=== PATIENT | male | born 1955 | race Caucasian/White ===

== ENCOUNTER 2017-04-29 06:00 | Inpatient (IN) | payer MEDICAID, OTHER ==
[~2017-04-29] VITALS: Ht 177.8 cm; Wt 84.3 kg
[2017-04-29 06:32] LABS: Basophils # (auto) 0.1 uL; Basophils % (auto) 0.7 % (0.0-2.0); CONDITION Y; DEFINITIVE SEE PRINTOUT; Eosinophils # (auto) 0 uL; Eosinophils % (auto) 0.2 % (0.0-7.0); Hematocrit 54.4 % (41.0-53.0); Hemoglobin 18.1 g/dL (13.5-17.5); Lymphocytes # (auto) 3.3 uL; Lymphocytes % (auto) 16.9 % (10.0-50.0); Mean Corpuscular Hemoglobin 26.9 pg (28.0-32.0); Mean Corpuscular Hgb Conc. 33.2 g/dL (32.0-36.0); Mean Corpuscular Volume 81.1 fL (80.0-100.0); Mean Platelet Volume 9.1 fL (7.4-10.4); Monocytes # (auto) 0.9 uL; Monocytes % (auto) 4.8 % (0.0-12.0); Neutrophils % (auto) 77.4 % (37.0-80.0); Platelet Count (auto) 371 10^3/uL (140-450); Red Cell Distribution Width 16.4 % (11.6-16.0); White Blood Cell 19.4 10^3/uL (4.4-10.8)
[2017-04-29] MEDS ORDERED: cloNIDine HCL 0.1 MG TAB ONE (06:47)
[2017-04-29] MEDS ORDERED: SODIUM CHLORIDE 0.9% 1,000 ML IV ONE (07:00)
[2017-04-29] MEDS ORDERED: cloNIDine HCL 0.1 MG TAB PO ONE (07:00)
[2017-04-29] MEDS ORDERED: MORPHINE SULFATE 4 MG/ML SYRG IV ONE (07:15)
[2017-04-29] MEDS ORDERED: ONDANSETRON HCL 4 MG/2 ML VIAL IV ONE (07:15)
[2017-04-29 07:29] LABS: Anion Gap 12 (5-15); Aspartate Aminotransferase 35 U/L (15-37); BUN/Creatinine Ratio 17.5; Blood Urea Nitrogen 32 mg/dL (7-18); Calcium 9.5 mg/dL (8.5-10.1); Carbon Dioxide 23 mmol/L (21-32); Chloride 97 mmol/L (98-107); GFR African American 48 mL/min; GFR Non-African American 40 mL/min; Glucose 169 mg/dL (74-106); Magnesium 2.5 mg/dL (1.6-2.6); Potassium 4.3 mmol/L (3.5-5.1); Sodium 132 mmol/L (136-145)
[2017-04-29] MEDS ORDERED: cefTRIAXone 1GM/50ML D5W 50 ML IV ONE (07:30)
[2017-04-29] MEDS ORDERED: metroNIDAZOLE 500MG/100ML 100 ML IV ONE (07:30)
[2017-04-29 07:31] LABS: Alkaline Phosphatase 112 U/L (45-117); Bilirubin, Total 1.3 mg/dL (0.2-1.0); Total Protein 9.2 g/dL (6.4-8.2)
[2017-04-29] MEDS ORDERED: DOCUSATE SOD 100 MG CAP PO PRN (09:15)
[2017-04-29] MEDS ORDERED: DEXTROSE (50%) 50ML SYRG IV PRN (09:15)
[2017-04-29] MEDS ORDERED: ONDANSETRON HCL 4 MG/2 ML VIAL IV PRN (09:15)
[2017-04-29] MEDS ORDERED: ACETAMINOPHEN 325 MG TAB PO PRN (09:15)
[2017-04-29] MEDS ORDERED: TEMAZEPAM 15 MG CAP PO PRN (09:15)
[2017-04-29] MEDS: SODIUM CHLORIDE 0.9% 1,000 ML IV SCH ×2 (09:22→17:17)
[2017-04-29] MEDS: FAMOTIDINE 20 MG TAB PO SCH ×2 (09:25→21:31)
[2017-04-29] MEDS: ASPirin-EC 81 mg tab PO SCH (09:28)
[2017-04-29] MEDS: LISINOPRIL 20 MG TAB PO SCH (09:28)
[2017-04-29] MEDS ORDERED: cloNIDine HCL 0.1 MG TAB PO PRN (09:30)
[2017-04-29] MEDS ORDERED: PATIENTS OWN MEDICATION IN SCH ×2 (10:00)
[2017-04-29] MEDS: ALBUTEROL SULF 2.5 MG/0.5ML(0.5%) NEB SOLN NEB SCH ×2 (11:00→19:31)
[2017-04-29] MEDS: BUDESONIDE (INHALATION) 0.5 MG/2 ML NEB NEB SCH ×2 (11:00→19:31)
[2017-04-29] MEDS: ACCU-CHEK COMFORT CURVE STRIP VI SCH ×3 (11:30→21:31)
[2017-04-29] MEDS: InsuLIN REG 1unit/0.01ml Soln (100units/ml) SC SCH ×3 (11:30→21:31)
[2017-04-29] MEDS: metroNIDAZOLE 500MG/100ML 100 ML IV SCH ×2 (14:00→21:31)
[2017-04-29 14:40] VITALS: BP 104/50
[2017-04-29 15:19] LABS: Lactic Acid w/Reflex 2.2 mmol/L (0.4-2.0)
[2017-04-29 15:41] LABS: REFLEX LACTIC ACID YES OR NO YES
[2017-04-29 17:18] VITALS: BP 92/52
[2017-04-29] MEDS: MORPHINE SULF INJ 2 MG/ML SYRINGE 1ML IV PRN (18:54)
[2017-04-29 21:53] VITALS: BP 86/58
[2017-04-29] MEDS: HYDROcodone-ACET 5/325MG TAB PO PRN (23:57)
[2017-04-30] MEDS: SODIUM CHLORIDE 0.9% 1,000 ML IV SCH ×3 (03:00→18:40)
[2017-04-30 04:45] VITALS: BP 86/55
[2017-04-30] MEDS: BUDESONIDE (INHALATION) 0.5 MG/2 ML NEB NEB SCH (06:00)
[2017-04-30] MEDS: ALBUTEROL SULF 2.5 MG/0.5ML(0.5%) NEB SOLN NEB SCH ×3 (06:00→18:08)
[2017-04-30] MEDS: ACCU-CHEK COMFORT CURVE STRIP VI SCH ×4 (06:10→20:30)
[2017-04-30] MEDS: InsuLIN REG 1unit/0.01ml Soln (100units/ml) SC SCH ×4 (06:10→20:30)
[2017-04-30] MEDS: metroNIDAZOLE 500MG/100ML 100 ML IV SCH (06:10)
[2017-04-30 06:25] LABS: Basophils # (auto) 0 uL; Basophils % (auto) 0.4 % (0.0-2.0); CONDITION Y; DEFINITIVE SEE PRINTOUT; Eosinophils # (auto) 0.1 uL; Eosinophils % (auto) 0.6 % (0.0-7.0); Hematocrit 41.1 % (41.0-53.0); Hemoglobin 13.5 g/dL (13.5-17.5); Lymphocytes # (auto) 3.9 uL; Lymphocytes % (auto) 32.7 % (10.0-50.0); Mean Corpuscular Hgb Conc. 32.7 g/dL (32.0-36.0); Mean Corpuscular Volume 82.4 fL (80.0-100.0); Mean Platelet Volume 9.3 fL (7.4-10.4); Monocytes % (auto) 8.2 % (0.0-12.0); Neutrophils # (auto) 6.9 uL; Neutrophils % (auto) 58.1 % (37.0-80.0); Platelet Count (auto) 303 10^3/uL (140-450); Red Cell Distribution Width 16.6 % (11.6-16.0); White Blood Cell 11.9 10^3/uL (4.4-10.8)
[2017-04-30 06:37] LABS: Albumin 2.9 g/dL (3.4-5.0); Calcium 7.9 mg/dL (8.5-10.1); Potassium 4.1 mmol/L (3.5-5.1)
[2017-04-30 06:40] LABS: Bilirubin, Total 0.6 mg/dL (0.2-1.0); Total Protein 5.8 g/dL (6.4-8.2)
[2017-04-30 09:00] VITALS: BP 90/60
[2017-04-30] MEDS ORDERED: cefTRIAXone 1GM/50ML D5W 50 ML IV SCH (09:00)
[2017-04-30] MEDS: HYDROcodone-ACET 5/325MG TAB PO PRN (09:18)
[2017-04-30] MEDS: LISINOPRIL 20 MG TAB PO SCH (10:00)
[2017-04-30] MEDS: ASPirin-EC 81 mg tab PO SCH (10:13)
[2017-04-30] MEDS: FAMOTIDINE 20 MG TAB PO SCH ×2 (10:13→20:30)
[2017-04-30] MEDS: MULTIPLE VITAMIN TAB PO SCH (10:14)
[2017-04-30] MEDS ORDERED: SODIUM CHLORIDE 0.9% 1,000 ML IV ONE (10:45)
[2017-04-30] MEDS ORDERED: LISI-646 PO (11:43)
[2017-04-30] MEDS ORDERED: ASPI81TA27 PO (11:44)
[2017-04-30] MEDS ORDERED: BUDE0.253 NEB (11:49)
[2017-04-30 13:00] VITALS: BP 111/77
[2017-04-30] MEDS: MORPHINE SULF INJ 2 MG/ML SYRINGE 1ML IV PRN ×2 (14:18→20:29)
[2017-04-30 17:00] VITALS: BP 101/67
[2017-04-30 22:00] VITALS: BP 108/68
[2017-05-01] MEDS: MORPHINE SULF INJ 2 MG/ML SYRINGE 1ML IV PRN (02:54)
[2017-05-01] MEDS: SODIUM CHLORIDE 0.9% 1,000 ML IV SCH (02:54)
[2017-05-01 04:47] VITALS: BP 136/84
[2017-05-01 05:53] LABS: Basophils # (auto) 0.1 uL; Basophils % (auto) 0.7 % (0.0-2.0); CONDITION Y; Eosinophils # (auto) 0 uL; Eosinophils % (auto) 0.3 % (0.0-7.0); Hematocrit 41.3 % (41.0-53.0); Hemoglobin 13.6 g/dL (13.5-17.5); Lymphocytes # (auto) 3.2 uL; Mean Corpuscular Hemoglobin 27.1 pg (28.0-32.0); Mean Platelet Volume 9.2 fL (7.4-10.4); Monocytes # (auto) 1.3 uL; Monocytes % (auto) 10.5 % (0.0-12.0); Neutrophils # (auto) 7.8 uL; Neutrophils % (auto) 62.5 % (37.0-80.0); Platelet Count (auto) 261 10^3/uL (140-450); Red Cell Distribution Width 16.4 % (11.6-16.0); White Blood Cell 12.4 10^3/uL (4.4-10.8)
[2017-05-01] MEDS: ALBUTEROL SULF 2.5 MG/0.5ML(0.5%) NEB SOLN NEB SCH ×3 (06:07→12:00)
[2017-05-01] MEDS: InsuLIN REG 1unit/0.01ml Soln (100units/ml) SC SCH (06:23)
[2017-05-01] MEDS: ACCU-CHEK COMFORT CURVE STRIP VI SCH (06:24)
[2017-05-01 06:30] LABS: BUN/Creatinine Ratio 8.6; Calcium 7.8 mg/dL (8.5-10.1); Magnesium 2.2 mg/dL (1.6-2.6); Potassium 3.6 mmol/L (3.5-5.1)
[2017-05-01 09:49] VITALS: BP 152/69
[2017-05-01] MEDS: MULTIPLE VITAMIN TAB PO SCH (10:15)
[2017-05-01] MEDS: FAMOTIDINE 20 MG TAB PO SCH (10:16)
[2017-05-01 13:00] VITALS: BP 152/69
[2017-05-01] MEDS ORDERED: OMEP20CA74 PO (13:46)
[2017-05-01 14:25] VITALS: BP 90/65
== END 2017-05-01 14:40 | disposition home or self-care (01) | DRG 468 ==
LOC: ER 06:05 → OVERFLOW 06:06 → EAST 11:53
PROVIDERS: ADMIT Internal Medicine; ATTEND Internal Medicine
DX: I12.9 Hypertensive chronic kidney disease with stage 1 through stage 4 chronic kidney disease, or unspecified chronic kidney disease (principal); N17.9 Acute kidney failure, unspecified; N18.3 Chronic kidney disease, stage 3 (moderate); J44.9 Chronic obstructive pulmonary disease, unspecified; D75.1 Secondary polycythemia; E86.0 Dehydration; K52.9 Noninfective gastroenteritis and colitis, unspecified; E87.1 Hypo-osmolality and hyponatremia; F17.210 Nicotine dependence, cigarettes, uncomplicated; Z86.59 Personal history of other mental and behavioral disorders
CPT/HCPCS: 36415; 71010; 74176; 80048; 80053; 82150; 82962; 83036; 83605; 83690; 83735; 84443; 84484; 85025; 87040; 93005; 94640; 94761; 96361; 96365; 96367; 96375; J0696; J2405; J3490

== ENCOUNTER 2017-06-03 01:54 | Emergency (ER) | payer MEDICAID ==
[~2017-06-03] VITALS: Ht 177.8 cm; Wt 86.2 kg
[~2017-06-03 01:54] MED LIST: ASPI81TA27 PO; BUDE0.253 NEB; LISI-646 PO; OMEP20CA74 PO; TIOTCAP INH
[2017-06-03 03:42] LABS: Urine Bilirubin Negative (Negative); Urine Blood Negative /uL (Negative); Urine Ca Oxalate Crystal MOD (None Seen); Urine Color Yellow (Yellow); Urine Glucose Normal (Normal); Urine Granular Cast MANY /lpf (0); Urine Hyaline Cast MANY /lpf (0 - 2); Urine Ketone Negative (Negative); Urine Mucus FEW (None Seen); Urine Nitrite Negative (Negative); Urine RBC 13 /hpf (0 - 3); Urine Squamous Epithelial Cell FEW /hpf (<5); Urine Urobilinogen Normal (Negative); Urine pH 5.5 (5.0-8.0)
[2017-06-03] MEDS ORDERED: ONDANSETRON ODT 4 MG TAB PO ONE (04:45)
[2017-06-03] MEDS ORDERED: MORPHINE SULFATE 4 MG/ML SYRG IV ONE (06:00)
[2017-06-03] MEDS ORDERED: IOHEXOL 300 MG/ML 100ML BOTTLE IJ ONE (06:43)
[2017-06-03 08:20] LABS: Basophils # (auto) 0.1 uL; Basophils % (auto) 0.4 % (0.0-2.0); CONDITION Y; DEFINITIVE SEE PRINTOUT; Eosinophils # (auto) 0 uL; Eosinophils % (auto) 0.1 % (0.0-7.0); Hematocrit 47.8 % (41.0-53.0); Hemoglobin 15.8 g/dL (13.5-17.5); Lymphocytes # (auto) 1.9 uL; Lymphocytes % (auto) 16.3 % (10.0-50.0); Mean Corpuscular Hemoglobin 26.1 pg (28.0-32.0); Mean Corpuscular Hgb Conc. 33.1 g/dL (32.0-36.0); Mean Corpuscular Volume 78.9 fL (80.0-100.0); Mean Platelet Volume 9.5 fL (7.4-10.4); Monocytes # (auto) 0.4 uL; Monocytes % (auto) 3.8 % (0.0-12.0); Neutrophils # (auto) 9.2 uL; Neutrophils % (auto) 79.4 % (37.0-80.0); Platelet Count (auto) 291 10^3/uL (140-450); Red Cell Distribution Width 17.5 % (11.6-16.0); White Blood Cell 11.5 10^3/uL (4.4-10.8)
[2017-06-03 08:33] LABS: Calcium 8.8 mg/dL (8.5-10.1); Chloride 105 mmol/L (98-107); Potassium 3.7 mmol/L (3.5-5.1); Sodium 139 mmol/L (136-145)
[2017-06-03 08:36] LABS: Albumin 4.6 g/dL (3.4-5.0); Anion Gap 10 (5-15); Aspartate Aminotransferase 17 U/L (15-37); BUN/Creatinine Ratio 15.1; Blood Urea Nitrogen 19 mg/dL (7-18); Carbon Dioxide 24 mmol/L (21-32); GFR African American 75 mL/min; GFR Non-African American 62 mL/min; Glucose 124 mg/dL (74-106); Magnesium 2.6 mg/dL (1.6-2.6)
[2017-06-03 08:42] LABS: Alkaline Phosphatase 102 U/L (45-117); Bilirubin, Total 0.6 mg/dL (0.2-1.0); Total Protein 7.8 g/dL (6.4-8.2)
[2017-06-03] MEDS ORDERED: LABETALOL HCL 5 MG/ML ML 20ML VIAL IV ONE (10:15)
[2017-06-03] MEDS ORDERED: METOCLOPRAMIDE HCL 5MG/ml INJ 2ml VIAL IV ONE (10:45)
[2017-06-03] MEDS ORDERED: cefTRIAXone 1GM/50ML D5W 50 ML IV ONE (10:45)
[2017-06-03] MEDS ORDERED: KETOROLAC TROMETH 30 MG/ML 1ML VIAL IV ONE (10:45)
[2017-06-03] MEDS ORDERED: hydrALAZINE HCL 20 MG/ML VL ONE (11:12)
[2017-06-03] MEDS ORDERED: hydrALAZINE HCL 20 MG/ML VL IV ONE (11:15)
[2017-06-03] MEDS ORDERED: SODIUM CHLORIDE 0.9% 250 ML IV ONE (12:30)
[2017-06-03] MEDS ORDERED: SODIUM CHLORIDE 0.9% 500 ML IV ONE (13:45)
[2017-06-03] MEDS ORDERED: SODIUM CHLORIDE 0.9% 1,000 ML IV ONE (14:30)
[2017-06-03 15:08] VITALS: BP 110/60
== END 2017-06-03 10:46 | disposition home or self-care (01) ==
LOC: ER 02:00
DX: N39.0 Urinary tract infection, site not specified (principal); I10 Essential (primary) hypertension; F12.10 Cannabis abuse, uncomplicated; M51.36 Other intervertebral disc degeneration, lumbar region; N40.0 Benign prostatic hyperplasia without lower urinary tract symptoms; F17.210 Nicotine dependence, cigarettes, uncomplicated; J44.9 Chronic obstructive pulmonary disease, unspecified; Z79.82 Long term (current) use of aspirin
CPT/HCPCS: 36415; 74177; 80053; 80307; 81001; 83605; 83690; 83735; 84484; 85025; 93005; 96361; 96365; 96375; 99285; J0360; J0696; J1885; J2270; J2765; J7030; J7040; J7050; Q0162; Q9967

== ENCOUNTER 2017-07-23 08:32 | Emergency (ER) | payer MEDICAID ==
[~2017-07-23] VITALS: Ht 177.8 cm; Wt 86.2 kg
[2017-07-23] MEDS ORDERED: cloNIDine HCL 0.1 MG TAB PO ONE (08:45)
[2017-07-23 09:23] LABS: Basophils # (auto) 0 uL; Basophils % (auto) 0.1 % (0.0-2.0); Eosinophils # (auto) 0 uL; Lymphocytes # (auto) 1.2 uL; Lymphocytes % (auto) 10.1 % (10.0-50.0); Mean Platelet Volume 8.4 fL (6.9-10.8); Monocytes # (auto) 0.3 uL; Nucleated Red Blood Cells % 0.1 %
[2017-07-23 09:25] LABS: Hematocrit 45.9 % (41.0-53.0); Hemoglobin 15.1 g/dL (13.5-17.5); Mean Corpuscular Hgb Conc. 32.8 g/dL (32.0-36.0); Mean Corpuscular Volume 79.3 fL (80.0-100.0); Monocytes % (auto) 2.5 % (0.0-12.0); Neutrophils # (auto) 10.5 uL; Neutrophils % (auto) 87.3 % (37.0-80.0); Platelet Count (auto) 292 10^3/uL (140-450); Red Cell Distribution Width 19.2 % (11.8-14.3)
[2017-07-23] MEDS ORDERED: SODIUM CHLORIDE 0.9% 1,000 ML IV ONE ×2 (09:32)
[2017-07-23] MEDS ORDERED: ONDANSETRON HCL 4 MG/2 ML VIAL IV ONE (09:45)
[2017-07-23] MEDS ORDERED: KETOROLAC TROMETH 30 MG/ML 1ML VIAL IV ONE ×2 (09:45→11:15)
[2017-07-23 10:16] LABS: Albumin 3.8 g/dL (3.4-5.0); Alkaline Phosphatase 105 U/L (45-117); Amylase 20 U/L (25-115); Anion Gap 10 (5-15); Aspartate Aminotransferase 12 U/L (15-37); BUN/Creatinine Ratio 12.8; Bilirubin, Total 0.6 mg/dL (0.2-1.0); Blood Urea Nitrogen 10 mg/dL (7-18); Calcium 8.9 mg/dL (8.5-10.1); Carbon Dioxide 22 mmol/L (21-32); Chloride 102 mmol/L (98-107); GFR African American 130 mL/min; GFR Non-African American 107 mL/min; Glucose 179 mg/dL (74-106); Potassium 3.6 mmol/L (3.5-5.1); Sodium 134 mmol/L (136-145); Total Protein 8.1 g/dL (6.4-8.2)
[2017-07-23 10:36] LABS: Urine RBC None Seen /hpf (0 - 3)
[2017-07-23] MEDS ORDERED: LABETALOL HCL 5 MG/ML 4ML SYRINGE IV ONE (10:45)
[2017-07-23 10:49] LABS: Urine Bilirubin Negative (Negative); Urine Blood Negative /uL (Negative); Urine Color Yellow (Yellow); Urine Glucose 3+ mg/dL (Normal); Urine Ketone 2+ (Negative); Urine Nitrite Negative (Negative); Urine Urobilinogen Normal (Negative)
[2017-07-23] MEDS ORDERED: LABETALOL HCL 5 MG/ML ML 20ML VIAL IV ONE (10:50)
[2017-07-23 13:27] VITALS: BP 163/106
[2017-07-25 11:07] LABS: PSA Free 0.26 ng/mL
== END 2017-07-23 13:37 | disposition home or self-care (01) ==
LOC: ER 08:32
DX: K52.9 Noninfective gastroenteritis and colitis, unspecified (principal); J44.9 Chronic obstructive pulmonary disease, unspecified; I10 Essential (primary) hypertension; F17.200 Nicotine dependence, unspecified, uncomplicated
CPT/HCPCS: 36415; 71010; 74176; 80053; 81001; 82150; 83690; 84154; 84484; 85025; 93005; 96361; 96374; 96375; 96376; 99285; J1885; J2405; J7030

== ENCOUNTER 2022-05-13 17:50 | Inpatient (IN) | payer MEDICARE, MEDICAID ==
[~2022-05-13] VITALS: Ht 177.8 cm; Wt 80.1 kg
[~2022-05-13 17:50] MED LIST changes: +ASPI-543 PO; -ASPI81TA27 PO; -LISI-646 PO; +LISI20TA28 PO
[2022-05-13] MEDS ORDERED: METOPROLOL TARTRATE 1MG/1ML-5ML VIAL IV ONE (19:00)
[2022-05-13] MEDS ORDERED: FUROSEMIDE 40 MG/4 ML VIAL IV ONE (19:00)
[2022-05-13 19:13] LABS: Basophils # (auto) 0.1 10 ^3/uL (0-0.2); Basophils % (auto) 0.6 % (0.0-2.0); Eosinophils # (auto) 0 10 ^3/uL (0-0.8); Eosinophils % (auto) 0.2 % (0.0-7.0); Lymphocytes # (auto) 2.6 10 ^3/uL (0.4-5.4); Lymphocytes % (auto) 30.3 % (10.0-50.0); Mean Corpuscular Hgb Conc. 31.9 g/dL (32.0-36.0); Mean Corpuscular Volume 93.9 fL (80.0-100.0); Monocytes # (auto) 0.6 10 ^3/uL (0-1.3); Neutrophils # (auto) 5.4 10 ^3/uL (1.6-8.6); Neutrophils % (auto) 61.9 % (37.0-80.0); Nucleated Red Blood Cells % 0.3 %; Red Blood Cells 5.32 10^6/uL (4.5-5.90); White Blood Cell 8.7 10^3/uL (4.4-10.8)
[2022-05-13 19:24] LABS: Albumin 3.6 g/dL (3.4-5.0); Calcium 8.9 mg/dL (8.5-10.1); Magnesium 2.2 mg/dL (1.6-2.6); Potassium 4.3 mmol/L (3.5-5.1)
[2022-05-13 19:33] LABS: BUN/Creatinine Ratio 10.7; Total Protein 6.8 g/dL (6.4-8.2)
[2022-05-13] MEDS ORDERED: cefTRIAXone 1GM/50ML D5W 50 ML IV ONE (20:15)
[2022-05-13 22:48] LABS: Lactic Acid w/Reflex 2.2 mmol/L (0.4-2.0)
[2022-05-13 22:53] LABS: Urine Bacteria FEW /hpf (None Seen); Urine Blood Negative /uL (Negative); Urine Hyaline Cast FEW /lpf (0 - 2); Urine Mucus FEW (None Seen); Urine Specific Gravity 1.013 (1.001-1.035); Urine WBC 1 /hpf (0 - 3)
[2022-05-13] MEDS ORDERED: ALBUTEROL SULF 2.5 MG/0.5ML(0.5%) NEB SOLN NEB ONE (23:00)
[2022-05-13] MEDS ORDERED: IPRATROPIUM BROM 0.5 MG/2.5ML INH SOL NEB ONE (23:00)
[2022-05-13] MEDS ORDERED: hydrALAZINE HCL 20 MG/ML VL IV PRN (23:15)
[2022-05-13] MEDS ORDERED: ACETAMINOPHEN 325 MG TAB PO PRN (23:15)
[2022-05-13] MEDS ORDERED: ALBUTEROL SULF 2.5 MG/0.5ML(0.5%) NEB SOLN NEB PRN (23:15)
[2022-05-13] MEDS ORDERED: IPRATROPIUM BROM 0.5 MG/2.5ML INH SOL NEB PRN (23:15)
[2022-05-13] MEDS ORDERED: DOCUSATE SOD 100 MG CAP PO PRN (23:15)
[2022-05-13] MEDS ORDERED: ONDANSETRON HCL 4 MG/2 ML VIAL IV PRN (23:15)
[2022-05-14] MEDS ORDERED: MORPHINE SULFATE INJ 2 MG/ml SYRG IV PRN (00:15)
[2022-05-14] MEDS ORDERED: NITROGLYCERIN 0.4 MG SL TAB SL PRN (00:15)
[2022-05-14] MEDS ORDERED: DOCUSATE SOD 100 MG CAP PO PRN (00:45)
[2022-05-14 01:33] VITALS: BP 137/107
[2022-05-14 01:51] VITALS: BP 147/112
[2022-05-14] MEDS: TEMAZEPAM 15 MG CAP PO PRN (02:02)
[2022-05-14 04:59] VITALS: BP 151/123
[2022-05-14] MEDS: SODIUM CHLOR 0.9% PF (SALINE LOCK) 10ML VIAL/SYR IV SCH ×3 (05:39→21:29)
[2022-05-14] MEDS: cefTRIAXone 1GM/50ML D5W 50 ML IV SCH (08:41)
[2022-05-14] MEDS: ASPirin 81 mg TAB PO SCH (09:03)
[2022-05-14] MEDS: FAMOTIDINE (10MG/ML) 2ML VL IV SCH ×2 (09:03→21:29)
[2022-05-14] MEDS: METOPROLOL TARTRATE 25 MG TAB PO SCH ×2 (09:04→21:29)
[2022-05-14 09:28] VITALS: BP 147/113
[2022-05-14 13:08] VITALS: BP 114/81
[2022-05-14] MEDS ORDERED: AZITHROMYCIN 500MG/ 250ML 250 ML IV ONE (14:00)
[2022-05-14] MEDS ORDERED: EPIN0.12 IN (16:12)
[2022-05-14] MEDS: HYDROcodone-ACET 5/325MG TAB PO PRN (21:28)
[2022-05-14 22:00] VITALS: BP 125/94
[2022-05-15 05:00] VITALS: BP 128/92
[2022-05-15] MEDS: HYDROcodone-ACET 5/325MG TAB PO PRN ×2 (05:15→20:13)
[2022-05-15] MEDS: SODIUM CHLOR 0.9% PF (SALINE LOCK) 10ML VIAL/SYR IV SCH ×3 (06:01→22:07)
[2022-05-15 06:31] LABS: Basophils # (auto) 0 10 ^3/uL (0-0.2); Basophils % (auto) 0.4 % (0.0-2.0); Eosinophils # (auto) 0 10 ^3/uL (0-0.8); Hemoglobin 16.4 g/dL (13.5-17.5); Lymphocytes % (auto) 27.6 % (10.0-50.0); Mean Corpuscular Hemoglobin 30.4 pg (28.0-32.0); Mean Corpuscular Hgb Conc. 32.1 g/dL (32.0-36.0); Mean Corpuscular Volume 94.6 fL (80.0-100.0); Monocytes # (auto) 1.2 10 ^3/uL (0-1.3); Monocytes % (auto) 10.9 % (0.0-12.0); Neutrophils # (auto) 6.6 10 ^3/uL (1.6-8.6); Neutrophils % (auto) 61.1 % (37.0-80.0); Nucleated Red Blood Cells % 0.2 %; Red Blood Cells 5.39 10^6/uL (4.5-5.90); Red Cell Distribution Width 15.9 % (11.8-14.3); White Blood Cell 10.9 10^3/uL (4.4-10.8)
[2022-05-15 06:47] LABS: Calcium 8.6 mg/dL (8.5-10.1); Potassium 4.5 mmol/L (3.5-5.1)
[2022-05-15 07:12] LABS: BUN/Creatinine Ratio 19.4; Bilirubin, Total 1.4 mg/dL (0.2-1.0); Total Protein 5.9 g/dL (6.4-8.2)
[2022-05-15 08:30] VITALS: BP 125/89
[2022-05-15] MEDS ORDERED: AZITHROMYCIN 500MG/ 250ML 250 ML IV SCH (10:00)
[2022-05-15] MEDS: FUROSEMIDE 40 MG/4 ML VIAL IV SCH (10:00)
[2022-05-15] MEDS: cefTRIAXone 1GM/50ML D5W 50 ML IV SCH (13:12)
[2022-05-15] MEDS: FAMOTIDINE (10MG/ML) 2ML VL IV SCH ×2 (13:14→21:12)
[2022-05-15] MEDS: ASPirin 81 mg TAB PO SCH (13:15)
[2022-05-15] MEDS: METOPROLOL TARTRATE 25 MG TAB PO SCH ×2 (13:18→21:13)
[2022-05-15 13:22] VITALS: BP 116/87
[2022-05-15 16:30] VITALS: BP 117/90
[2022-05-15] MEDS: TEMAZEPAM 15 MG CAP PO PRN ×2 (21:06)
[2022-05-16 02:01] LABS: Basophils # (auto) 0 10 ^3/uL (0-0.2); Basophils % (auto) 0.1 % (0.0-2.0); Eosinophils # (auto) 0 10 ^3/uL (0-0.8); Hematocrit 50.5 % (41.0-53.0); Hemoglobin 16.4 g/dL (13.5-17.5); Lymphocytes # (auto) 1.1 10 ^3/uL (0.4-5.4); Lymphocytes % (auto) 8.4 % (10.0-50.0); Mean Corpuscular Hemoglobin 30.7 pg (28.0-32.0); Mean Corpuscular Hgb Conc. 32.4 g/dL (32.0-36.0); Mean Corpuscular Volume 94.9 fL (80.0-100.0); Monocytes # (auto) 1.1 10 ^3/uL (0-1.3); Monocytes % (auto) 8.3 % (0.0-12.0); Neutrophils # (auto) 11.2 10 ^3/uL (1.6-8.6); Neutrophils % (auto) 83.2 % (37.0-80.0); Nucleated Red Blood Cells % 0.2 %; Red Blood Cells 5.33 10^6/uL (4.5-5.90); Red Cell Distribution Width 15.8 % (11.8-14.3); White Blood Cell 13.5 10^3/uL (4.4-10.8)
[2022-05-16 02:10] LABS: INR 2.38 (0.9-1.15); Partial Thromboplastin Time 33.8 sec (24.6-33.4)
[2022-05-16 02:13] LABS: Albumin 3.3 g/dL (3.4-5.0); BUN/Creatinine Ratio 21.3; Calcium 8.9 mg/dL (8.5-10.1); Potassium 4.5 mmol/L (3.5-5.1)
[2022-05-16 02:22] LABS: Bilirubin, Total 1.2 mg/dL (0.2-1.0); Total Protein 6.1 g/dL (6.4-8.2)
[2022-05-16 05:00] VITALS: BP 134/104
[2022-05-16] MEDS: SODIUM CHLOR 0.9% PF (SALINE LOCK) 10ML VIAL/SYR IV SCH ×3 (06:12→21:30)
[2022-05-16 09:00] VITALS: BP 138/91
[2022-05-16] MEDS ORDERED: phytonadione 10 MG in SODIUM CHL 0.9% 50 ML IV ONE (12:00)
[2022-05-16] MEDS: cefTRIAXone 1GM/50ML D5W 50 ML IV SCH (12:26)
[2022-05-16] MEDS: FUROSEMIDE 40 MG/4 ML VIAL IV SCH (12:29)
[2022-05-16] MEDS: ASPirin 81 mg TAB PO SCH (12:32)
[2022-05-16] MEDS: METOPROLOL TARTRATE 25 MG TAB PO SCH ×2 (12:33→22:00)
[2022-05-16 13:00] VITALS: BP 110/77
[2022-05-16 17:00] VITALS: BP 97/78
[2022-05-16 20:07] LABS: Amphetamine Screen, Urine NEGATIVE (NEGATIVE); Barbiturate Scree,Urine NEGATIVE (NEGATIVE); Benzodiazephine Screen, Urine NEGATIVE (NEGATIVE); Cannabinoid Screen, Urine POSITIVE (NEGATIVE); Cocaine Screen, Urine NEGATIVE (NEGATIVE); Opiate Scree,Urine NEGATIVE (NEGATIVE); Phencyclidine Screen, Urine NEGATIVE (NEGATIVE)
[2022-05-16] MEDS: TEMAZEPAM 15 MG CAP PO PRN (21:24)
[2022-05-16 22:00] VITALS: BP 118/95
[2022-05-17 03:21] VITALS: BP 118/95
[2022-05-17 05:00] VITALS: BP 138/95
[2022-05-17] MEDS: SODIUM CHLOR 0.9% PF (SALINE LOCK) 10ML VIAL/SYR IV SCH ×3 (06:27→21:20)
[2022-05-17 07:08] LABS: INR 1.72 (0.9-1.15)
[2022-05-17] MEDS: cefTRIAXone 1GM/50ML D5W 50 ML IV SCH (12:40)
[2022-05-17] MEDS: DexAMETHasone SOD PHOS 10MG/1ML VIAL INJ IV SCH (12:47)
[2022-05-17] MEDS: FUROSEMIDE 40 MG/4 ML VIAL IV SCH (12:50)
[2022-05-17] MEDS: ASPirin 81 mg TAB PO SCH (12:51)
[2022-05-17] MEDS: ZINC SULFATE 220mg CAP or TAB PO SCH (12:51)
[2022-05-17] MEDS: CHOLECALCIFEROL (VITD3) 2,000 UNIT CAP/TAB PO SCH (12:52)
[2022-05-17] MEDS: ASCORBIC ACID 500 MG TAB PO SCH ×2 (12:52→21:15)
[2022-05-17] MEDS: MULTIPLE VITAMIN TAB PO SCH (12:53)
[2022-05-17] MEDS: DOXYCYCLINE 100 MG TAB/CAP PO SCH ×2 (12:53→21:16)
[2022-05-17] MEDS: METOPROLOL TARTRATE 25 MG TAB PO SCH ×2 (12:54→21:19)
[2022-05-17 13:00] VITALS: BP 131/89
[2022-05-17 17:00] VITALS: BP 114/91
[2022-05-17] MEDS: TEMAZEPAM 15 MG CAP PO PRN (21:19)
[2022-05-17 22:00] VITALS: BP 123/85
[2022-05-18] VITALS (7 sets, daily range): BP systolic 98–128; BP diastolic 71–103
[2022-05-18] MEDS: SODIUM CHLOR 0.9% PF (SALINE LOCK) 10ML VIAL/SYR IV SCH ×3 (06:57→21:48)
[2022-05-18 07:14] LABS: Potassium 4.1 mmol/L (3.5-5.1)
[2022-05-18 07:28] LABS: Albumin 2.8 g/dL (3.4-5.0); BUN/Creatinine Ratio 19.1; Bilirubin, Total 0.8 mg/dL (0.2-1.0); Calcium 8.1 mg/dL (8.5-10.1); Total Protein 5.6 g/dL (6.4-8.2)
[2022-05-18] MEDS: cefTRIAXone 1GM/50ML D5W 50 ML IV SCH (09:12)
[2022-05-18] MEDS: FUROSEMIDE 40 MG/4 ML VIAL IV SCH (09:13)
[2022-05-18] MEDS: DexAMETHasone SOD PHOS 10MG/1ML VIAL INJ IV SCH (09:13)
[2022-05-18] MEDS: ZINC SULFATE 220mg CAP or TAB PO SCH (09:14)
[2022-05-18] MEDS: ASPirin 81 mg TAB PO SCH (09:14)
[2022-05-18] MEDS: ASCORBIC ACID 500 MG TAB PO SCH ×2 (09:14→21:49)
[2022-05-18] MEDS: METOPROLOL TARTRATE 25 MG TAB PO SCH ×2 (09:15→21:49)
[2022-05-18] MEDS: CHOLECALCIFEROL (VITD3) 2,000 UNIT CAP/TAB PO SCH (09:15)
[2022-05-18] MEDS: DOXYCYCLINE 100 MG TAB/CAP PO SCH ×2 (09:15→21:48)
[2022-05-18] MEDS: MULTIPLE VITAMIN TAB PO SCH (10:41)
[2022-05-18] MEDS ORDERED: guaiFENesin-DM 100/10mg/5ml SYR PO PRN (11:30)
[2022-05-18] MEDS: HYDROcodone-ACET 5/325MG TAB PO PRN ×2 (12:50→18:12)
[2022-05-18] MEDS: TEMAZEPAM 15 MG CAP PO PRN (21:50)
[2022-05-19] VITALS (12 sets, daily range): BP systolic 111–141; BP diastolic 77–108
[2022-05-19] MEDS: SODIUM CHLOR 0.9% PF (SALINE LOCK) 10ML VIAL/SYR IV SCH ×3 (06:00→22:01)
[2022-05-19] MEDS: HYDROcodone-ACET 5/325MG TAB PO PRN ×2 (08:34→19:02)
[2022-05-19 09:48] LABS: Hepatitis B Surface Antibody Negative (Negative)
[2022-05-19] MEDS: cefTRIAXone 1GM/50ML D5W 50 ML IV SCH (10:00)
[2022-05-19] MEDS: ASCORBIC ACID 500 MG TAB PO SCH ×2 (10:01→22:01)
[2022-05-19] MEDS: MULTIPLE VITAMIN TAB PO SCH (10:01)
[2022-05-19] MEDS: DOXYCYCLINE 100 MG TAB/CAP PO SCH ×2 (10:01→22:01)
[2022-05-19] MEDS: ZINC SULFATE 220mg CAP or TAB PO SCH (10:01)
[2022-05-19] MEDS: CHOLECALCIFEROL (VITD3) 2,000 UNIT CAP/TAB PO SCH (10:01)
[2022-05-19] MEDS: ASPirin 81 mg TAB PO SCH (10:01)
[2022-05-19] MEDS: FUROSEMIDE 40 MG/4 ML VIAL IV SCH (10:14)
[2022-05-19] MEDS: METOPROLOL TARTRATE 25 MG TAB PO SCH ×2 (10:14→22:01)
[2022-05-19] MEDS: DexAMETHasone SOD PHOS 10MG/1ML VIAL INJ IV SCH (10:14)
[2022-05-19 10:24] LABS: Hepatitis A Total Antibody Positive (Negative)
[2022-05-19] MEDS: ALBUTEROL SULF 2.5 MG/0.5ML(0.5%) NEB SOLN NEB SCH ×2 (11:27→20:18)
[2022-05-19 11:40] LABS: Hepatitis A Ab IgM Negative
[2022-05-19 11:41] LABS: Hepatitis B Core IgM Negative
[2022-05-19 11:46] LABS: Hepatitis C Antibody Positive (Negative)
[2022-05-19] MEDS ORDERED: LIDOCAINE 2%HCL (LOCAL ANESTH.) INJ 20ML MDV ONE (15:53)
[2022-05-19] MEDS ORDERED: MIDAZOLAM HCL 2MG/2ML 2ml VIAL (1mg/ml) ONE (16:10)
[2022-05-19] MEDS ORDERED: ANGIOMAX 250 MG VIAL IV ONE (16:10)
[2022-05-19] MEDS ORDERED: fentaNYL CITRATE 5 ML ONE (16:10)
[2022-05-19] MEDS ORDERED: SODIUM CHL 0.9% 50 ML ONE (16:10)
[2022-05-19] MEDS ORDERED: IOHEXOL 350 MG/ML 100ML IJ ONE ×2 (16:16→16:53)
[2022-05-19] MEDS ORDERED: TICAGRELOR 90 MG TAB ONE (17:02)
[2022-05-19] MEDS: TEMAZEPAM 15 MG CAP PO PRN (22:02)
[2022-05-20 00:28] VITALS: BP 125/95
[2022-05-20 05:00] VITALS: BP 125/83
[2022-05-20] MEDS: TICAGRELOR 90 MG TAB PO SCH ×2 (05:47→17:48)
[2022-05-20] MEDS: SODIUM CHLOR 0.9% PF (SALINE LOCK) 10ML VIAL/SYR IV SCH ×3 (06:06→21:43)
[2022-05-20] MEDS: HYDROcodone-ACET 5/325MG TAB PO PRN ×4 (06:06→21:44)
[2022-05-20] MEDS: ALBUTEROL SULF 2.5 MG/0.5ML(0.5%) NEB SOLN NEB SCH ×3 (06:36→18:45)
[2022-05-20 08:40] VITALS: BP 120/89
[2022-05-20] MEDS: cefTRIAXone 1GM/50ML D5W 50 ML IV SCH (09:36)
[2022-05-20] MEDS: DexAMETHasone SOD PHOS 10MG/1ML VIAL INJ IV SCH (10:50)
[2022-05-20] MEDS: FUROSEMIDE 40 MG/4 ML VIAL IV SCH (10:51)
[2022-05-20] MEDS: ASPirin 81 mg TAB PO SCH (10:51)
[2022-05-20] MEDS: CHOLECALCIFEROL (VITD3) 2,000 UNIT CAP/TAB PO SCH (10:52)
[2022-05-20] MEDS: ZINC SULFATE 220mg CAP or TAB PO SCH (10:52)
[2022-05-20] MEDS: METOPROLOL TARTRATE 25 MG TAB PO SCH ×2 (10:52→21:44)
[2022-05-20] MEDS: MULTIPLE VITAMIN TAB PO SCH (10:52)
[2022-05-20] MEDS: ASCORBIC ACID 500 MG TAB PO SCH ×2 (10:53→21:44)
[2022-05-20 12:37] VITALS: BP 128/97
[2022-05-20 16:30] VITALS: BP 122/92
[2022-05-20] MEDS: TEMAZEPAM 15 MG CAP PO PRN (21:45)
[2022-05-20 22:00] VITALS: BP 127/96
[2022-05-21 05:00] VITALS: BP 130/89
[2022-05-21] MEDS: SODIUM CHLOR 0.9% PF (SALINE LOCK) 10ML VIAL/SYR IV SCH ×4 (05:55→21:22)
[2022-05-21] MEDS: TICAGRELOR 90 MG TAB PO SCH ×2 (05:55→18:44)
[2022-05-21] MEDS: ALBUTEROL SULF 2.5 MG/0.5ML(0.5%) NEB SOLN NEB SCH ×3 (06:26→18:47)
[2022-05-21] MEDS: HYDROcodone-ACET 5/325MG TAB PO PRN ×2 (08:18→14:23)
[2022-05-21 09:00] VITALS: BP 142/94
[2022-05-21] MEDS: cefTRIAXone 1GM/50ML D5W 50 ML IV SCH (09:29)
[2022-05-21] MEDS: DexAMETHasone SOD PHOS 10MG/1ML VIAL INJ IV SCH (10:51)
[2022-05-21] MEDS: ASPirin 81 mg TAB PO SCH (10:52)
[2022-05-21] MEDS: FUROSEMIDE 40 MG/4 ML VIAL IV SCH (10:52)
[2022-05-21] MEDS: ZINC SULFATE 220mg CAP or TAB PO SCH (10:52)
[2022-05-21] MEDS: CHOLECALCIFEROL (VITD3) 2,000 UNIT CAP/TAB PO SCH (10:53)
[2022-05-21] MEDS: METOPROLOL TARTRATE 25 MG TAB PO SCH ×2 (10:53→21:22)
[2022-05-21] MEDS: ASCORBIC ACID 500 MG TAB PO SCH ×2 (10:53→21:11)
[2022-05-21] MEDS: MULTIPLE VITAMIN TAB PO SCH (10:53)
[2022-05-21 13:00] VITALS: BP 123/93
[2022-05-21 17:00] VITALS: BP 118/82
[2022-05-21] MEDS: TEMAZEPAM 15 MG CAP PO PRN (21:23)
[2022-05-21 22:00] VITALS: BP 126/79
[2022-05-22] MEDS: HYDROcodone-ACET 5/325MG TAB PO PRN ×3 (04:09→21:32)
[2022-05-22 05:00] VITALS: BP 112/62
[2022-05-22] MEDS: TICAGRELOR 90 MG TAB PO SCH ×2 (05:54→17:50)
[2022-05-22] MEDS: ALBUTEROL SULF 2.5 MG/0.5ML(0.5%) NEB SOLN NEB SCH ×3 (06:37→18:38)
[2022-05-22] MEDS: cefTRIAXone 1GM/50ML D5W 50 ML IV SCH (08:45)
[2022-05-22 09:00] VITALS: BP 130/102
[2022-05-22] MEDS: FUROSEMIDE 40 MG/4 ML VIAL IV SCH (09:44)
[2022-05-22] MEDS: DexAMETHasone SOD PHOS 10MG/1ML VIAL INJ IV SCH (09:44)
[2022-05-22] MEDS: ASPirin 81 mg TAB PO SCH (09:44)
[2022-05-22] MEDS: ZINC SULFATE 220mg CAP or TAB PO SCH (09:44)
[2022-05-22] MEDS: MULTIPLE VITAMIN TAB PO SCH (09:45)
[2022-05-22] MEDS: CHOLECALCIFEROL (VITD3) 2,000 UNIT CAP/TAB PO SCH (09:45)
[2022-05-22] MEDS: ASCORBIC ACID 500 MG TAB PO SCH ×2 (09:45→21:13)
[2022-05-22] MEDS: METOPROLOL TARTRATE 25 MG TAB PO SCH ×2 (09:45→21:13)
[2022-05-22] MEDS: SODIUM CHLOR 0.9% PF (SALINE LOCK) 10ML VIAL/SYR IV SCH ×2 (14:00→21:40)
[2022-05-22 17:00] VITALS: BP 119/87
[2022-05-22 17:06] VITALS: BP 125/98
[2022-05-22 22:00] VITALS: BP 158/94
[2022-05-23 03:58] LABS: Basophils # (auto) 0 10 ^3/uL (0-0.2); Basophils % (auto) 0.1 % (0.0-2.0); Eosinophils # (auto) 0 10 ^3/uL (0-0.8); Hematocrit 52.5 % (41.0-53.0); Lymphocytes # (auto) 1.1 10 ^3/uL (0.4-5.4); Mean Corpuscular Hgb Conc. 32.4 g/dL (32.0-36.0); Mean Corpuscular Volume 95.9 fL (80.0-100.0); Monocytes # (auto) 1.4 10 ^3/uL (0-1.3); Monocytes % (auto) 9.2 % (0.0-12.0); Neutrophils % (auto) 83.7 % (37.0-80.0); Nucleated Red Blood Cells % 0.2 %; Red Blood Cells 5.48 10^6/uL (4.5-5.90); Red Cell Distribution Width 16.8 % (11.8-14.3); White Blood Cell 15.6 10^3/uL (4.4-10.8)
[2022-05-23 04:12] LABS: Potassium 5.1 mmol/L (3.5-5.1)
[2022-05-23 04:19] LABS: Albumin 3.3 g/dL (3.4-5.0); BUN/Creatinine Ratio 22.6; Bilirubin, Total 0.6 mg/dL (0.2-1.0); Total Protein 6.4 g/dL (6.4-8.2)
[2022-05-23 05:00] VITALS: BP 136/98
[2022-05-23] MEDS: TICAGRELOR 90 MG TAB PO SCH ×2 (05:10→18:45)
[2022-05-23] MEDS: HYDROcodone-ACET 5/325MG TAB PO PRN ×2 (05:11→16:05)
[2022-05-23] MEDS: SODIUM CHLOR 0.9% PF (SALINE LOCK) 10ML VIAL/SYR IV SCH ×2 (05:12→14:15)
[2022-05-23] MEDS: ALBUTEROL SULF 2.5 MG/0.5ML(0.5%) NEB SOLN NEB SCH ×3 (07:06→18:00)
[2022-05-23 09:00] VITALS: BP 137/90
[2022-05-23] MEDS: cefTRIAXone 1GM/50ML D5W 50 ML IV SCH (09:40)
[2022-05-23] MEDS: MULTIPLE VITAMIN TAB PO SCH (09:40)
[2022-05-23] MEDS: ASCORBIC ACID 500 MG TAB PO SCH (09:40)
[2022-05-23] MEDS: ASPirin 81 mg TAB PO SCH (09:40)
[2022-05-23] MEDS: DexAMETHasone SOD PHOS 10MG/1ML VIAL INJ IV SCH (09:41)
[2022-05-23] MEDS: FUROSEMIDE 40 MG/4 ML VIAL IV SCH (09:41)
[2022-05-23] MEDS: CHOLECALCIFEROL (VITD3) 2,000 UNIT CAP/TAB PO SCH (09:41)
[2022-05-23] MEDS: ZINC SULFATE 220mg CAP or TAB PO SCH (09:41)
[2022-05-23] MEDS: METOPROLOL TARTRATE 25 MG TAB PO SCH (09:42)
[2022-05-23 13:00] VITALS: BP 128/98
[2022-05-23 17:00] VITALS: BP 144/93
== END 2022-05-23 19:05 | DRG 246 ==
LOC: ER 17:50 → TELE-WESTW 05-14 00:07 → ER 05-14 01:16
PROVIDERS: ADMIT Nurse Practitioner Family; ATTEND Family Medicine
PROC: 027035Z Dilation of Coronary Artery, One Artery with Two Drug-eluting Intraluminal Devices, Percutaneous Approach (ICD-10-PCS; principal; 2022-05-19)
PROC: B2111ZZ Fluoroscopy of Multiple Coronary Arteries using Low Osmolar Contrast (ICD-10-PCS; 2022-05-19)
PROC: B2151ZZ Fluoroscopy of Left Heart using Low Osmolar Contrast (ICD-10-PCS; 2022-05-19)
DX: I13.0 Hypertensive heart and chronic kidney disease with heart failure and stage 1 through stage 4 chronic kidney disease, or unspecified chronic kidney disease (principal); I50.33 Acute on chronic diastolic (congestive) heart failure; J12.82 Pneumonia due to coronavirus disease 2019; U07.1 COVID-19; J96.01 Acute respiratory failure with hypoxia; J44.0 Chronic obstructive pulmonary disease with (acute) lower respiratory infection; S82.201A Unspecified fracture of shaft of right tibia, initial encounter for closed fracture; J44.1 Chronic obstructive pulmonary disease with (acute) exacerbation; I16.9 Hypertensive crisis, unspecified; N17.9 Acute kidney failure, unspecified; E87.2 Acidosis; K92.2 Gastrointestinal hemorrhage, unspecified; F17.210 Nicotine dependence, cigarettes, uncomplicated; G47.00 Insomnia, unspecified; B18.2 Chronic viral hepatitis C; I25.10 Atherosclerotic heart disease of native coronary artery without angina pectoris; W18.39XA Other fall on same level, initial encounter; K76.0 Fatty (change of) liver, not elsewhere classified; S82.401A Unspecified fracture of shaft of right fibula, initial encounter for closed fracture; Z86.73 Personal history of transient ischemic attack (TIA), and cerebral infarction without residual deficits; Z79.82 Long term (current) use of aspirin; Z79.899 Other long term (current) drug therapy; Z81.1 Family history of alcohol abuse and dependence; Z80.42 Family history of malignant neoplasm of prostate; Y93.89 Activity, other specified; Y92.89 Other specified places as the place of occurrence of the external cause; Y99.8 Other external cause status; Z95.1 Presence of aortocoronary bypass graft; N18.9 Chronic kidney disease, unspecified
CPT/HCPCS: 36415; 71045; 71250; 73610; 76705; 80053; 80074; 80307; 81001; 82140; 83605; 83735; 83880; 84484; 85025; 85610; 85730; 86704; 86706; 86708; 86803; 86850; 86900; 86901; 87040; 87340; 92928; 93005; 93306; 93458; 93971; 94640; 96365; 96375; 97163; 99152; 99153; C1874; G0378; J0696; J1100; J2250; J3430; J3490

== ENCOUNTER 2022-06-24 09:19 | Inpatient (IN) | payer MEDICARE, MEDICAID ==
[~2022-06-24] VITALS: Ht 177.8 cm; Wt 72.2 kg
[~2022-06-24 09:19] MED LIST changes: +EPIN0.12 IN
[2022-06-24] MEDS ORDERED: cefTRIAXone 1GM/50ML D5W 50 ML IV ONE (12:15)
[2022-06-24] MEDS ORDERED: CLINDAMYCIN 600MG IV 50 ML IV ONE (12:15)
[2022-06-24] MEDS ORDERED: HEPARIN SODIUM (PORCINE) 5000 UNITS/ML 1ML VIAL IV ONE ×2 (12:15→13:30)
[2022-06-24 12:46] LABS: Basophils # (auto) 0.1 10 ^3/uL (0-0.2); Eosinophils # (auto) 0.1 10 ^3/uL (0-0.8); Nucleated Red Blood Cells % 0.5 %
[2022-06-24 12:48] LABS: Eosinophils % (auto) 0.7 % (0.0-7.0); Hemoglobin 18.4 g/dL (13.5-17.5); Lymphocytes # (auto) 4.1 10 ^3/uL (0.4-5.4); Lymphocytes % (auto) 37.9 % (10.0-50.0); Mean Corpuscular Hemoglobin 29.7 pg (28.0-32.0); Mean Corpuscular Hgb Conc. 32.7 g/dL (32.0-36.0); Monocytes % (auto) 8.9 % (0.0-12.0); Neutrophils # (auto) 5.5 10 ^3/uL (1.6-8.6); Neutrophils % (auto) 51.5 % (37.0-80.0); Red Cell Distribution Width 15.5 % (11.8-14.3); White Blood Cell 10.7 10^3/uL (4.4-10.8)
[2022-06-24 13:07] LABS: Albumin 3.9 g/dL (3.4-5.0); Calcium 9.5 mg/dL (8.5-10.1)
[2022-06-24 13:10] LABS: BUN/Creatinine Ratio 12.7; Bilirubin, Total 0.5 mg/dL (0.2-1.0); Total Protein 8.7 g/dL (6.4-8.2)
[2022-06-24 13:21] LABS: INR 1.08 (0.9-1.15); Partial Thromboplastin Time 36.3 sec (24.6-33.4)
[2022-06-24 13:27] LABS: Hematocrit 56.5 % (41.0-53.0)
[2022-06-24] MEDS ORDERED: HEPARIN DRIP/D5W 100UNITS/ML 250 ML IV SCH (14:00)
[2022-06-24] MEDS: ONDANSETRON HCL 4 MG/2 ML VIAL IV PRN (17:28)
[2022-06-24] MEDS: MORPHINE SULFATE INJ 2 MG/ml SYRG IV PRN (17:29)
[2022-06-24] MEDS: SODIUM CHLORIDE 0.9% 1,000 ML IV SCH (18:06)
[2022-06-24] MEDS: ATORVASTATIN 20 MG TAB PO SCH (22:22)
[2022-06-24] MEDS: HYDROcodone-ACET 5/325MG TAB PO PRN (22:25)
[2022-06-25 00:12] LABS: INR 1.03 (0.9-1.15); Partial Thromboplastin Time 33.5 sec (24.6-33.4)
[2022-06-25] MEDS ORDERED: HEPARIN SODIUM (PORCINE) 5000 UNITS/ML 1ML VIAL IV ONE ×2 (00:30→10:15)
[2022-06-25] MEDS: HYDROcodone-ACET 5/325MG TAB PO PRN ×3 (03:17→22:12)
[2022-06-25] MEDS: SODIUM CHLORIDE 0.9% 1,000 ML IV SCH ×2 (06:20→22:50)
[2022-06-25 07:44] LABS: INR 1.03 (0.9-1.15); Partial Thromboplastin Time 34.4 sec (24.6-33.4)
[2022-06-25 07:51] LABS: Potassium 4.8 mmol/L (3.5-5.1)
[2022-06-25 07:57] LABS: Albumin 3.1 g/dL (3.4-5.0); BUN/Creatinine Ratio 23.9; Bilirubin, Total 0.5 mg/dL (0.2-1.0); Calcium 8.9 mg/dL (8.5-10.1); Total Protein 6.3 g/dL (6.4-8.2)
[2022-06-25] MEDS: ONDANSETRON HCL 4 MG/2 ML VIAL IV PRN (08:38)
[2022-06-25] MEDS: MORPHINE SULFATE INJ 2 MG/ml SYRG IV PRN ×2 (08:40→20:32)
[2022-06-25 08:47] LABS: Basophils # (auto) 0.1 10 ^3/uL (0-0.2); Basophils % (auto) 1.2 % (0.0-2.0); Eosinophils # (auto) 0.1 10 ^3/uL (0-0.8); Eosinophils % (auto) 1.2 % (0.0-7.0); Hematocrit 48.8 % (41.0-53.0); Hemoglobin 16.6 g/dL (13.5-17.5); Lymphocytes # (auto) 3.2 10 ^3/uL (0.4-5.4); Lymphocytes % (auto) 36.9 % (10.0-50.0); Mean Corpuscular Hemoglobin 30.4 pg (28.0-32.0); Mean Corpuscular Hgb Conc. 33.9 g/dL (32.0-36.0); Mean Corpuscular Volume 89.7 fL (80.0-100.0); Monocytes # (auto) 0.9 10 ^3/uL (0-1.3); Monocytes % (auto) 10.2 % (0.0-12.0); Neutrophils # (auto) 4.4 10 ^3/uL (1.6-8.6); Neutrophils % (auto) 50.5 % (37.0-80.0); Nucleated Red Blood Cells % 0.1 %; Red Blood Cells 5.44 10^6/uL (4.5-5.90); Red Cell Distribution Width 15.3 % (11.8-14.3); White Blood Cell 8.6 10^3/uL (4.4-10.8)
[2022-06-25] MEDS ORDERED: LISINOPRIL 20 MG TAB PO SCH (10:00)
[2022-06-25] MEDS ORDERED: HEPARIN DRIP/D5W 100UNITS/ML 250 ML IV SCH (10:15)
[2022-06-25] MEDS: ASPirin 81 mg TAB PO SCH (10:59)
[2022-06-25] MEDS: TICAGRELOR 90 MG TAB PO SCH ×2 (11:21→22:11)
[2022-06-25] MEDS: DAPAGLIFLOZIN 5 MG TAB PO SCH (11:26)
[2022-06-25] MEDS: CARVEDILOL 3.125 MG TAB PO SCH ×2 (11:27→22:11)
[2022-06-25] MEDS: CLINDAMYCIN 300MG IV 50 ML IV SCH ×2 (14:00→22:11)
[2022-06-25] MEDS ORDERED: TICA90TA PO (18:06)
[2022-06-25] MEDS ORDERED: HYDR2TAB58 PO (18:06)
[2022-06-25] MEDS ORDERED: COLC1TAB3 PO (18:06)
[2022-06-25] MEDS ORDERED: FURO1TAB31 PO (18:06)
[2022-06-25] MEDS ORDERED: MET25T PO (18:06)
[2022-06-25] MEDS ORDERED: ALL300T PO (18:06)
[2022-06-25] MEDS ORDERED: MORP15TA PO (18:06)
[2022-06-25] MEDS ORDERED: TEMA15CA PO (18:06)
[2022-06-25 18:07] LABS: INR 1.05 (0.9-1.15); Partial Thromboplastin Time 32.3 sec (24.6-33.4)
[2022-06-25] MEDS: HEPARIN DRIP/D5W 100UNITS/ML 250 ML IV SCH (18:38)
[2022-06-25 22:00] VITALS: BP 105/76
[2022-06-25] MEDS: SACUBITRIL-VALSARTAN 24mg/26mg TAB PO SCH (22:11)
[2022-06-25] MEDS: ATORVASTATIN 20 MG TAB PO SCH (22:12)
[2022-06-25] MEDS: TEMAZEPAM 15 MG CAP PO PRN (22:13)
[2022-06-26 02:14] LABS: INR 1.12 (0.9-1.15); Partial Thromboplastin Time 33.8 sec (24.6-33.4)
[2022-06-26] MEDS ORDERED: HEPARIN SODIUM (PORCINE) 5000 UNITS/ML 1ML VIAL IV ONE (03:00)
[2022-06-26] MEDS: ACETAMINOPHEN 325 MG TAB PO PRN (04:02)
[2022-06-26 05:00] VITALS: BP 110/65
[2022-06-26] MEDS: MORPHINE SULFATE INJ 2 MG/ml SYRG IV PRN ×4 (05:18→20:36)
[2022-06-26] MEDS: HEPARIN DRIP/D5W 100UNITS/ML 250 ML IV SCH (05:55)
[2022-06-26] MEDS: CLINDAMYCIN 300MG IV 50 ML IV SCH ×3 (06:10→21:43)
[2022-06-26 08:00] VITALS: BP 95/71
[2022-06-26] MEDS: HYDROcodone-ACET 5/325MG TAB PO PRN (08:14)
[2022-06-26] MEDS: ASPirin 81 mg TAB PO SCH (10:09)
[2022-06-26] MEDS: CARVEDILOL 3.125 MG TAB PO SCH ×2 (10:09→21:44)
[2022-06-26] MEDS: SACUBITRIL-VALSARTAN 24mg/26mg TAB PO SCH ×2 (10:13→21:45)
[2022-06-26] MEDS: DAPAGLIFLOZIN 5 MG TAB PO SCH (10:13)
[2022-06-26] MEDS: TICAGRELOR 90 MG TAB PO SCH ×2 (10:13→21:44)
[2022-06-26 12:00] VITALS: BP 104/68
[2022-06-26 13:04] LABS: INR 1.13 (0.9-1.15)
[2022-06-26 13:08] LABS: Partial Thromboplastin Time 127.2 sec (24.6-33.4)
[2022-06-26] MEDS ORDERED: HEPARIN DRIP/D5W 100UNITS/ML 250 ML IV SCH ×2 (13:15→23:00)
[2022-06-26] MEDS: SODIUM CHLORIDE 0.9% 1,000 ML IV SCH (15:30)
[2022-06-26 16:00] VITALS: BP 91/66
[2022-06-26 20:16] LABS: INR 1.14 (0.9-1.15); Partial Thromboplastin Time > 139.0 sec (24.6-33.4)
[2022-06-26] MEDS: TEMAZEPAM 15 MG CAP PO PRN (20:33)
[2022-06-26] MEDS: ATORVASTATIN 20 MG TAB PO SCH (21:45)
[2022-06-26 22:00] VITALS: BP 103/71
[2022-06-26 23:15] LABS: INR 1.08 (0.9-1.15); Partial Thromboplastin Time 54.3 sec (24.6-33.4)
[2022-06-27] MEDS: MORPHINE SULFATE INJ 2 MG/ml SYRG IV PRN ×4 (02:17→18:05)
[2022-06-27] MEDS: ACETAMINOPHEN 325 MG TAB PO PRN (02:18)
[2022-06-27 03:40] LABS: Urine WBC None Seen /hpf (0 - 3)
[2022-06-27 03:52] LABS: Urine Bacteria FEW /hpf (None Seen); Urine Blood Negative /uL (Negative); Urine Specific Gravity 1.005 (1.001-1.035)
[2022-06-27 05:00] VITALS: BP 91/55
[2022-06-27 05:44] LABS: INR 1.11 (0.9-1.15)
[2022-06-27 05:50] LABS: Partial Thromboplastin Time 136.6 sec (24.6-33.4)
[2022-06-27] MEDS: CLINDAMYCIN 300MG IV 50 ML IV SCH ×3 (06:03→23:25)
[2022-06-27 08:00] VITALS: BP 116/69
[2022-06-27] MEDS: SACUBITRIL-VALSARTAN 24mg/26mg TAB PO SCH ×2 (08:54→23:26)
[2022-06-27] MEDS: ASPirin 81 mg TAB PO SCH (08:54)
[2022-06-27] MEDS: TICAGRELOR 90 MG TAB PO SCH ×2 (08:54→23:26)
[2022-06-27] MEDS: DAPAGLIFLOZIN 5 MG TAB PO SCH (08:55)
[2022-06-27] MEDS: CARVEDILOL 3.125 MG TAB PO SCH ×2 (08:55→23:27)
[2022-06-27] MEDS: SODIUM CHLORIDE 0.9% 1,000 ML IV SCH (09:00)
[2022-06-27] MEDS: HYDROcodone-ACET 5/325MG TAB PO PRN (10:17)
[2022-06-27 10:47] LABS: INR 1.08 (0.9-1.15); Partial Thromboplastin Time 32.8 sec (24.6-33.4)
[2022-06-27] MEDS ORDERED: HEPARIN DRIP/D5W 100UNITS/ML 250 ML IV SCH (11:03)
[2022-06-27 12:00] VITALS: BP_SYST 104; BP_SYST 107; BP_DIAS 67; BP_DIAS 80
[2022-06-27 16:00] VITALS: BP 104/67
[2022-06-27 17:43] LABS: INR 1.13 (0.9-1.15)
[2022-06-27 17:46] LABS: Partial Thromboplastin Time 73.5 sec (24.6-33.4)
[2022-06-27] MEDS ORDERED: IOHEXOL 350 MG/ML 100ML IJ ONE ×2 (19:27→20:07)
[2022-06-27] MEDS ORDERED: LIDOCAINE 2%HCL (LOCAL ANESTH.) INJ 20ML MDV ONE (19:27)
[2022-06-27] MEDS ORDERED: ANGIOMAX 250 MG VIAL IV ONE (19:34)
[2022-06-27] MEDS ORDERED: MIDAZOLAM HCL 2MG/2ML 2ml VIAL (1mg/ml) ONE (19:34)
[2022-06-27] MEDS ORDERED: fentaNYL CITRATE 100 MCG/2 ML VL ONE (19:34)
[2022-06-27] MEDS ORDERED: SODIUM CHL 0.9% 50 ML ONE (19:35)
[2022-06-27] MEDS ORDERED: HYDROmorphone HCL 2 MG/ML VL/or syr ONE (20:19)
[2022-06-27 22:00] VITALS: BP 114/88
[2022-06-27 23:18] LABS: INR 1.32 (0.9-1.15); Partial Thromboplastin Time 62.2 sec (24.6-33.4)
[2022-06-27] MEDS: ATORVASTATIN 20 MG TAB PO SCH (23:26)
[2022-06-27] MEDS: ENOXAPARIN SOD 100 MG/1 ML SYRINGE SC SCH (23:27)
[2022-06-28] VITALS (7 sets, daily range): BP systolic 93–127; BP diastolic 62–80
[2022-06-28] MEDS: CLINDAMYCIN 300MG IV 50 ML IV SCH ×3 (00:50→14:48)
[2022-06-28] MEDS: SODIUM CHLORIDE 0.9% 1,000 ML IV SCH ×2 (00:50→17:29)
[2022-06-28] MEDS: TEMAZEPAM 15 MG CAP PO PRN ×2 (01:30→21:46)
[2022-06-28 06:02] LABS: Basophils # (auto) 0.1 10 ^3/uL (0-0.2); Basophils % (auto) 1.1 % (0.0-2.0); Eosinophils # (auto) 0 10 ^3/uL (0-0.8); Eosinophils % (auto) 0.4 % (0.0-7.0); Hematocrit 47.8 % (41.0-53.0); Hemoglobin 15.6 g/dL (13.5-17.5); Lymphocytes # (auto) 2.9 10 ^3/uL (0.4-5.4); Lymphocytes % (auto) 31.1 % (10.0-50.0); Mean Corpuscular Hemoglobin 29.5 pg (28.0-32.0); Mean Corpuscular Hgb Conc. 32.6 g/dL (32.0-36.0); Mean Corpuscular Volume 90.5 fL (80.0-100.0); Monocytes # (auto) 0.8 10 ^3/uL (0-1.3); Monocytes % (auto) 8.5 % (0.0-12.0); Neutrophils # (auto) 5.5 10 ^3/uL (1.6-8.6); Neutrophils % (auto) 58.9 % (37.0-80.0); Nucleated Red Blood Cells % 0.1 %; Red Blood Cells 5.27 10^6/uL (4.5-5.90); Red Cell Distribution Width 15.3 % (11.8-14.3); White Blood Cell 9.4 10^3/uL (4.4-10.8)
[2022-06-28] MEDS: SACUBITRIL-VALSARTAN 24mg/26mg TAB PO SCH ×2 (09:59→21:45)
[2022-06-28] MEDS: ENOXAPARIN SOD 100 MG/1 ML SYRINGE SC SCH (09:59)
[2022-06-28] MEDS: DAPAGLIFLOZIN 5 MG TAB PO SCH (09:59)
[2022-06-28] MEDS: PANTOPRAZOLE 40 MG TAB PO SCH (09:59)
[2022-06-28] MEDS: TICAGRELOR 90 MG TAB PO SCH ×2 (10:00→21:44)
[2022-06-28] MEDS: CARVEDILOL 3.125 MG TAB PO SCH ×2 (10:00→21:45)
[2022-06-28] MEDS: ASPirin 81 mg TAB PO SCH (10:00)
[2022-06-28] MEDS: MORPHINE SULFATE INJ 2 MG/ml SYRG IV PRN ×3 (10:30→22:15)
[2022-06-28] MEDS: HYDROcodone-ACET 10/325MG TAB PO PRN (20:05)
[2022-06-28] MEDS: ATORVASTATIN 20 MG TAB PO SCH (21:45)
[2022-06-28] MEDS: ENOXAPARIN SOD 80 MG/0.8ML SYRINGE SC SCH (21:45)
[2022-06-28] MEDS ORDERED: ENOXAPARIN SOD 80 MG/0.8ML SYRINGE SC SCH (22:00)
[2022-06-29] MEDS: CLINDAMYCIN 300MG IV 50 ML IV SCH ×4 (00:50→22:13)
[2022-06-29 05:00] VITALS: BP 122/80
[2022-06-29] MEDS: MORPHINE SULFATE INJ 2 MG/ml SYRG IV PRN ×3 (05:36→22:15)
[2022-06-29 06:57] LABS: Basophils # (auto) 0 10 ^3/uL (0-0.2); Basophils % (auto) 0.5 % (0.0-2.0); Eosinophils # (auto) 0.1 10 ^3/uL (0-0.8); Eosinophils % (auto) 0.6 % (0.0-7.0); Hematocrit 48.3 % (41.0-53.0); Hemoglobin 15.8 g/dL (13.5-17.5); Lymphocytes # (auto) 2.5 10 ^3/uL (0.4-5.4); Lymphocytes % (auto) 23.9 % (10.0-50.0); Mean Corpuscular Hemoglobin 29.1 pg (28.0-32.0); Mean Corpuscular Hgb Conc. 32.7 g/dL (32.0-36.0); Mean Corpuscular Volume 89.2 fL (80.0-100.0); Monocytes # (auto) 0.8 10 ^3/uL (0-1.3); Monocytes % (auto) 8.2 % (0.0-12.0); Neutrophils # (auto) 6.9 10 ^3/uL (1.6-8.6); Neutrophils % (auto) 66.8 % (37.0-80.0); Nucleated Red Blood Cells % 0.2 %; Red Blood Cells 5.41 10^6/uL (4.5-5.90); Red Cell Distribution Width 15.3 % (11.8-14.3); White Blood Cell 10.3 10^3/uL (4.4-10.8)
[2022-06-29 07:06] LABS: INR 1.09 (0.9-1.15); Partial Thromboplastin Time 35.9 sec (24.6-33.4)
[2022-06-29 07:11] LABS: Calcium 8.8 mg/dL (8.5-10.1); Potassium 4.9 mmol/L (3.5-5.1)
[2022-06-29 07:14] LABS: BUN/Creatinine Ratio 16.9
[2022-06-29 09:00] VITALS: BP 115/78
[2022-06-29] MEDS: TICAGRELOR 90 MG TAB PO SCH ×2 (09:18→22:13)
[2022-06-29] MEDS: SACUBITRIL-VALSARTAN 24mg/26mg TAB PO SCH ×2 (09:18→22:14)
[2022-06-29] MEDS: PANTOPRAZOLE 40 MG TAB PO SCH (09:19)
[2022-06-29] MEDS: CARVEDILOL 3.125 MG TAB PO SCH ×2 (09:19→22:14)
[2022-06-29] MEDS: ASPirin 81 mg TAB PO SCH (09:20)
[2022-06-29] MEDS: HYDROcodone-ACET 10/325MG TAB PO PRN (09:20)
[2022-06-29] MEDS: DAPAGLIFLOZIN 5 MG TAB PO SCH (09:57)
[2022-06-29] MEDS: ENOXAPARIN SOD 80 MG/0.8ML SYRINGE SC SCH ×2 (10:00→22:14)
[2022-06-29] MEDS: SODIUM CHLORIDE 0.9% 1,000 ML IV SCH (10:47)
[2022-06-29 13:00] VITALS: BP 101/69
[2022-06-29 16:38] VITALS: BP 105/72
[2022-06-29 22:00] VITALS: BP 101/71
[2022-06-29] MEDS: ATORVASTATIN 20 MG TAB PO SCH (22:14)
[2022-06-29] MEDS: TEMAZEPAM 15 MG CAP PO PRN (22:15)
[2022-06-30] MEDS: SODIUM CHLORIDE 0.9% 1,000 ML IV SCH ×2 (02:41→22:10)
[2022-06-30] MEDS: HYDROcodone-ACET 10/325MG TAB PO PRN ×3 (03:51→22:10)
[2022-06-30 05:00] VITALS: BP 105/77
[2022-06-30] MEDS: CLINDAMYCIN 300MG IV 50 ML IV SCH (06:21)
[2022-06-30 08:34] VITALS: BP 107/83
[2022-06-30] MEDS: MORPHINE SULFATE INJ 2 MG/ml SYRG IV PRN ×2 (08:46→17:47)
[2022-06-30] MEDS: ENOXAPARIN SOD 80 MG/0.8ML SYRINGE SC SCH ×2 (09:41→22:09)
[2022-06-30] MEDS: SACUBITRIL-VALSARTAN 24mg/26mg TAB PO SCH ×2 (09:42→22:09)
[2022-06-30] MEDS: PANTOPRAZOLE 40 MG TAB PO SCH (09:42)
[2022-06-30] MEDS: ASPirin 81 mg TAB PO SCH (09:42)
[2022-06-30] MEDS: DAPAGLIFLOZIN 5 MG TAB PO SCH (09:42)
[2022-06-30] MEDS: TICAGRELOR 90 MG TAB PO SCH ×2 (09:43→22:08)
[2022-06-30] MEDS: CARVEDILOL 3.125 MG TAB PO SCH ×2 (09:44→22:09)
[2022-06-30] MEDS: AMPICILLIN INJ 1 GM in SODIUM CHL 0.9% 50 ML IV SCH ×2 (11:46→18:15)
[2022-06-30 12:36] VITALS: BP 98/66
[2022-06-30 16:48] VITALS: BP 107/83
[2022-06-30 22:00] VITALS: BP 101/75
[2022-06-30] MEDS: LINEZOLID 600MG/300ML 300 ML IV SCH (22:08)
[2022-06-30] MEDS: ATORVASTATIN 20 MG TAB PO SCH (22:09)
[2022-07-01] MEDS: AMPICILLIN INJ 1 GM in SODIUM CHL 0.9% 50 ML IV SCH ×4 (00:38→18:04)
[2022-07-01] MEDS: HYDROcodone-ACET 10/325MG TAB PO PRN ×3 (04:10→18:04)
[2022-07-01 05:00] VITALS: BP 91/67
[2022-07-01 09:23] VITALS: BP 81/59
[2022-07-01] MEDS: CARVEDILOL 3.125 MG TAB PO SCH ×2 (10:00→21:50)
[2022-07-01] MEDS: NICOTINE 21MG/24 HR TOPICAL PATCH TD SCH (10:00)
[2022-07-01] MEDS: PANTOPRAZOLE 40 MG TAB PO SCH (10:21)
[2022-07-01] MEDS: TICAGRELOR 90 MG TAB PO SCH ×2 (10:21→21:49)
[2022-07-01] MEDS: LINEZOLID 600MG/300ML 300 ML IV SCH ×2 (10:21→21:42)
[2022-07-01] MEDS: DAPAGLIFLOZIN 5 MG TAB PO SCH (10:22)
[2022-07-01] MEDS: ENOXAPARIN SOD 80 MG/0.8ML SYRINGE SC SCH ×2 (10:22→21:50)
[2022-07-01] MEDS: ASPirin 81 mg TAB PO SCH (10:23)
[2022-07-01] MEDS: SACUBITRIL-VALSARTAN 24mg/26mg TAB PO SCH ×2 (10:23→21:50)
[2022-07-01] MEDS: SODIUM CHLORIDE 0.9% 1,000 ML IV SCH (12:58)
[2022-07-01 13:00] VITALS: BP 86/54
[2022-07-01] MEDS: ACETAMINOPHEN 325 MG TAB PO PRN ×2 (14:51→21:58)
[2022-07-01 17:24] VITALS: BP 88/58
[2022-07-01] MEDS: ATORVASTATIN 20 MG TAB PO SCH (21:49)
[2022-07-01] MEDS: TEMAZEPAM 15 MG CAP PO PRN (21:58)
[2022-07-01 22:00] VITALS: BP 93/62
[2022-07-02] MEDS: AMPICILLIN INJ 1 GM in SODIUM CHL 0.9% 50 ML IV SCH ×4 (01:47→18:38)
[2022-07-02] MEDS: HYDROcodone-ACET 10/325MG TAB PO PRN ×4 (02:31→23:07)
[2022-07-02 05:00] VITALS: BP 99/70
[2022-07-02] MEDS: SODIUM CHLORIDE 0.9% 1,000 ML IV SCH ×2 (06:52→21:30)
[2022-07-02 09:04] VITALS: BP 101/70
[2022-07-02] MEDS: NICOTINE 21MG/24 HR TOPICAL PATCH TD SCH (10:00)
[2022-07-02] MEDS: CARVEDILOL 3.125 MG TAB PO SCH ×2 (10:00→22:36)
[2022-07-02] MEDS: SACUBITRIL-VALSARTAN 24mg/26mg TAB PO SCH ×2 (10:00→22:00)
[2022-07-02] MEDS: TICAGRELOR 90 MG TAB PO SCH ×2 (10:00→22:34)
[2022-07-02] MEDS: ENOXAPARIN SOD 80 MG/0.8ML SYRINGE SC SCH ×2 (10:19→22:36)
[2022-07-02] MEDS: DAPAGLIFLOZIN 5 MG TAB PO SCH (10:19)
[2022-07-02] MEDS: ASPirin 81 mg TAB PO SCH (10:19)
[2022-07-02] MEDS: PANTOPRAZOLE 40 MG TAB PO SCH (10:19)
[2022-07-02] MEDS: LINEZOLID 600MG/300ML 300 ML IV SCH ×2 (10:20→22:34)
[2022-07-02 13:00] VITALS: BP 97/60
[2022-07-02] MEDS: ACETAMINOPHEN 325 MG TAB PO PRN ×2 (15:09→22:35)
[2022-07-02] MEDS: Juven Fruit Punch Powder PACKET 28.8gm PO SCH (18:39)
[2022-07-02 22:00] VITALS: BP 100/66
[2022-07-02] MEDS: ATORVASTATIN 20 MG TAB PO SCH (22:35)
[2022-07-02] MEDS: TEMAZEPAM 15 MG CAP PO PRN (23:07)
[2022-07-03] MEDS: AMPICILLIN INJ 1 GM in SODIUM CHL 0.9% 50 ML IV SCH ×4 (00:30→18:16)
[2022-07-03 05:00] VITALS: BP 108/73
[2022-07-03] MEDS: HYDROcodone-ACET 10/325MG TAB PO PRN ×3 (05:30→22:24)
[2022-07-03] MEDS: Juven Fruit Punch Powder PACKET 28.8gm PO SCH ×2 (08:00→18:08)
[2022-07-03] MEDS: NICOTINE 21MG/24 HR TOPICAL PATCH TD SCH (10:00)
[2022-07-03] MEDS: DAPAGLIFLOZIN 5 MG TAB PO SCH (10:00)
[2022-07-03] MEDS: TICAGRELOR 90 MG TAB PO SCH ×2 (11:43→21:23)
[2022-07-03] MEDS: PANTOPRAZOLE 40 MG TAB PO SCH (11:44)
[2022-07-03] MEDS: ASPirin 81 mg TAB PO SCH (11:44)
[2022-07-03] MEDS: CARVEDILOL 3.125 MG TAB PO SCH ×2 (11:44→21:24)
[2022-07-03] MEDS: SACUBITRIL-VALSARTAN 24mg/26mg TAB PO SCH ×2 (11:45→22:00)
[2022-07-03] MEDS: ENOXAPARIN SOD 80 MG/0.8ML SYRINGE SC SCH ×2 (11:45→21:23)
[2022-07-03] MEDS: LINEZOLID 600MG/300ML 300 ML IV SCH ×2 (11:46→21:24)
[2022-07-03 13:00] VITALS: BP 97/66
[2022-07-03] MEDS: SODIUM CHLORIDE 0.9% 1,000 ML IV SCH (14:10)
[2022-07-03] MEDS: ACETAMINOPHEN 325 MG TAB PO PRN (15:00)
[2022-07-03 17:00] VITALS: BP 96/69
[2022-07-03] MEDS: ATORVASTATIN 20 MG TAB PO SCH (21:24)
[2022-07-03 21:33] VITALS: BP 107/76
[2022-07-03] MEDS: TEMAZEPAM 15 MG CAP PO PRN (22:24)
[2022-07-04] MEDS: AMPICILLIN INJ 1 GM in SODIUM CHL 0.9% 50 ML IV SCH ×4 (00:08→17:28)
[2022-07-04] MEDS: ACETAMINOPHEN 325 MG TAB PO PRN ×3 (02:29→17:28)
[2022-07-04 05:00] VITALS: BP 108/78
[2022-07-04] MEDS: HYDROcodone-ACET 10/325MG TAB PO PRN ×3 (05:10→18:43)
[2022-07-04] MEDS: SODIUM CHLORIDE 0.9% 1,000 ML IV SCH (06:50)
[2022-07-04] MEDS: Juven Fruit Punch Powder PACKET 28.8gm PO SCH ×2 (08:00→18:00)
[2022-07-04 08:24] VITALS: BP 125/83
[2022-07-04] MEDS: DAPAGLIFLOZIN 5 MG TAB PO SCH (08:42)
[2022-07-04] MEDS: PANTOPRAZOLE 40 MG TAB PO SCH (08:43)
[2022-07-04] MEDS: SACUBITRIL-VALSARTAN 24mg/26mg TAB PO SCH (08:43)
[2022-07-04] MEDS: TICAGRELOR 90 MG TAB PO SCH (08:43)
[2022-07-04] MEDS: CARVEDILOL 3.125 MG TAB PO SCH (08:43)
[2022-07-04] MEDS: ASPirin 81 mg TAB PO SCH (08:44)
[2022-07-04] MEDS: ENOXAPARIN SOD 80 MG/0.8ML SYRINGE SC SCH (08:44)
[2022-07-04] MEDS: LINEZOLID 600MG/300ML 300 ML IV SCH (08:44)
[2022-07-04] MEDS: NICOTINE 21MG/24 HR TOPICAL PATCH TD SCH (08:46)
[2022-07-04 12:28] VITALS: BP 117/82
[2022-07-04 20:00] VITALS: BP 117/80
== END 2022-07-04 20:12 | DRG 299 ==
LOC: EDBD 09:19 → ER 09:19 → OVERFLOW 13:30 → WEST WING 06-25 16:14 → TELE-WESTW 06-25 16:41
PROVIDERS: ADMIT Internal Medicine; ATTEND Family Medicine
PROC: B41G1ZZ Fluoroscopy of Left Lower Extremity Arteries using Low Osmolar Contrast (ICD-10-PCS; principal; 2022-06-27)
PROC: B41F1ZZ Fluoroscopy of Right Lower Extremity Arteries using Low Osmolar Contrast (ICD-10-PCS; 2022-06-27)
PROC: 04JY3ZZ Inspection of Lower Artery, Percutaneous Approach (ICD-10-PCS; 2022-06-27)
DX: E11.51 Type 2 diabetes mellitus with diabetic peripheral angiopathy without gangrene (principal); I50.23 Acute on chronic systolic (congestive) heart failure; I42.7 Cardiomyopathy due to drug and external agent; E44.0 Moderate protein-calorie malnutrition; L97.929 Non-pressure chronic ulcer of unspecified part of left lower leg with unspecified severity; E87.1 Hypo-osmolality and hyponatremia; E87.2 Acidosis; J44.1 Chronic obstructive pulmonary disease with (acute) exacerbation; E78.5 Hyperlipidemia, unspecified; E88.09 Other disorders of plasma-protein metabolism, not elsewhere classified; I11.0 Hypertensive heart disease with heart failure; I25.10 Atherosclerotic heart disease of native coronary artery without angina pectoris; J44.9 Chronic obstructive pulmonary disease, unspecified; B95.61 Methicillin susceptible Staphylococcus aureus infection as the cause of diseases classified elsewhere; I70.222 Atherosclerosis of native arteries of extremities with rest pain, left leg; Z20.822 Contact with and (suspected) exposure to COVID-19; Z68.21 Body mass index [BMI] 21.0-21.9, adult; Z86.73 Personal history of transient ischemic attack (TIA), and cerebral infarction without residual deficits; Z71.6 Tobacco abuse counseling; F17.210 Nicotine dependence, cigarettes, uncomplicated
CPT/HCPCS: 36415; 71045; 73700; 75716; 80048; 80053; 80061; 81001; 83036; 83605; 83880; 84443; 84484; 85025; 85610; 85730; 86850; 86900; 86901; 87040; 87077; 87081; 87186; 87205; 93005; 93926; 93971; 96365; 96366; 96367; 96368; 96375; 96376; 99152; 99153; 99291; G0378; J0696; J2250; J2405; J3490

== ENCOUNTER 2022-08-22 16:26 | Emergency (ER) | payer MEDICARE, MEDICAID ==
[~2022-08-22] VITALS: Ht 170.2 cm; Wt 75.0 kg
[~2022-08-22 16:26] MED LIST changes: +ALL300T PO; +COLC1TAB3 PO; +FURO1TAB31 PO; +HYDR2TAB58 PO; +MET25T PO; +MORP15TA PO; +TEMA15CA PO; +TICA90TA PO
[2022-08-22 16:52] VITALS: BP 93/33
[2022-08-22] MEDS ORDERED: ONDANSETRON HCL 4 MG/2 ML VIAL IV ONE (17:15)
[2022-08-22] MEDS ORDERED: MORPHINE SULFATE 4 MG/ML SYR/VIAL IV ONE (17:15)
[2022-08-22] MEDS ORDERED: CLINDAMYCIN 600MG IV 50 ML IV ONE (17:30)
[2022-08-22 17:38] LABS: Eosinophils # (auto) 0 10 ^3/uL (0-0.8); Monocytes # (auto) 0.6 10 ^3/uL (0-1.3); Nucleated Red Blood Cells % 0.1 %; White Blood Cell 9.3 10^3/uL (4.4-10.8)
[2022-08-22 17:40] LABS: Basophils # (auto) 0.1 10 ^3/uL (0-0.2); Basophils % (auto) 0.8 % (0.0-2.0); Eosinophils % (auto) 0.4 % (0.0-7.0); Hematocrit 53.5 % (41.0-53.0); Hemoglobin 17.3 g/dL (13.5-17.5); Lymphocytes % (auto) 32.2 % (10.0-50.0); Mean Corpuscular Hemoglobin 29.4 pg (28.0-32.0); Mean Corpuscular Hgb Conc. 32.2 g/dL (32.0-36.0); Mean Corpuscular Volume 91.2 fL (80.0-100.0); Monocytes % (auto) 6.3 % (0.0-12.0); Neutrophils # (auto) 5.6 10 ^3/uL (1.6-8.6); Neutrophils % (auto) 60.3 % (37.0-80.0); Red Blood Cells 5.87 10^6/uL (4.5-5.90); Red Cell Distribution Width 19.3 % (11.8-14.3)
[2022-08-22 17:56] LABS: INR 1.15 (0.9-1.15); Partial Thromboplastin Time 25.6 sec (24.6-33.4)
[2022-08-22 18:04] LABS: Albumin 3.8 g/dL (3.4-5.0); BUN/Creatinine Ratio 12.6; Calcium 9.3 mg/dL (8.5-10.1); Potassium 3.9 mmol/L (3.5-5.1)
[2022-08-22 18:06] LABS: Bilirubin, Total 0.9 mg/dL (0.2-1.0); Total Protein 6.2 g/dL (6.4-8.2)
== END 2022-08-22 19:51 | disposition left against medical advice (07) ==
LOC: ER 16:26
DX: L03.116 Cellulitis of left lower limb (principal); I73.9 Peripheral vascular disease, unspecified; I11.0 Hypertensive heart disease with heart failure; I50.9 Heart failure, unspecified; I25.2 Old myocardial infarction; J44.9 Chronic obstructive pulmonary disease, unspecified; F17.210 Nicotine dependence, cigarettes, uncomplicated; Z86.73 Personal history of transient ischemic attack (TIA), and cerebral infarction without residual deficits; Z79.82 Long term (current) use of aspirin; Z79.899 Other long term (current) drug therapy
CPT/HCPCS: 36415; 73700; 80053; 85025; 85610; 85730; 93005; 93925

== ENCOUNTER 2022-09-06 14:10 | Inpatient (IN) | payer MEDICARE, MEDICAID ==
[~2022-09-06] VITALS: Ht 182.9 cm; Wt 69.3 kg
[2022-09-06 16:43] LABS: Eosinophils # (auto) 0 10 ^3/uL (0-0.8); Mean Corpuscular Hgb Conc. 31.1 g/dL (32.0-36.0); Monocytes # (auto) 1.2 10 ^3/uL (0-1.3)
[2022-09-06 16:49] LABS: Basophils # (auto) 0 10 ^3/uL (0-0.2); Basophils % (auto) 0.1 % (0.0-2.0); Eosinophils % (auto) 0.1 % (0.0-7.0); Hemoglobin 17.8 g/dL (13.5-17.5); Lymphocytes # (auto) 1.7 10 ^3/uL (0.4-5.4); Lymphocytes % (auto) 11.8 % (10.0-50.0); Mean Corpuscular Hemoglobin 28.3 pg (28.0-32.0); Monocytes % (auto) 8.4 % (0.0-12.0); Neutrophils # (auto) 11.7 10 ^3/uL (1.6-8.6); Neutrophils % (auto) 79.6 % (37.0-80.0); Nucleated Red Blood Cells % 0.2 %; Red Blood Cells 6.31 10^6/uL (4.5-5.90); White Blood Cell 14.8 10^3/uL (4.4-10.8)
[2022-09-06 16:51] LABS: Hematocrit 57.4 % (41.0-53.0)
[2022-09-06 17:05] LABS: Albumin 2.9 g/dL (3.4-5.0); BUN/Creatinine Ratio 24.1; Magnesium 2.1 mg/dL (1.6-2.6); Potassium 3.3 mmol/L (3.5-5.1)
[2022-09-06 17:08] LABS: Bilirubin, Total 1.3 mg/dL (0.2-1.0); Total Protein 6.4 g/dL (6.4-8.2)
[2022-09-06 17:15] LABS: INR 1.08 (0.9-1.15); Partial Thromboplastin Time 30.3 sec (24.6-33.4)
[2022-09-06] MEDS ORDERED: cefTRIAXone 1GM/50ML D5W 50 ML IV ONE (21:15)
[2022-09-06] MEDS ORDERED: POTASSIUM EFFERVESENT TAB 25 MEQ PO ONE (21:15)
[2022-09-06] MEDS ORDERED: CLINDAMYCIN 600MG IV 50 ML IV ONE (21:15)
[2022-09-06] MEDS: CLINDAMYCIN 600MG IV 50 ML IV SCH (22:00)
[2022-09-06 22:35] LABS: Lactic Acid w/Reflex 2.5 mmol/L (0.4-2.0)
[2022-09-07] MEDS: SODIUM CHLORIDE 0.9% 1,000 ML IV SCH ×2 (03:31→11:33)
[2022-09-07] MEDS: HYDROcodone-ACET 5/325MG TAB PO PRN ×3 (03:35→20:22)
[2022-09-07 04:06] LABS: Eosinophils # (auto) 0 10 ^3/uL (0-0.8); Eosinophils % (auto) 0.1 % (0.0-7.0); Mean Corpuscular Hemoglobin 29.5 pg (28.0-32.0); Nucleated Red Blood Cells % 0.1 %
[2022-09-07 04:08] LABS: Basophils # (auto) 0.1 10 ^3/uL (0-0.2); Basophils % (auto) 0.4 % (0.0-2.0); Hematocrit 54.5 % (41.0-53.0); Hemoglobin 17.7 g/dL (13.5-17.5); Lymphocytes # (auto) 2.6 10 ^3/uL (0.4-5.4); Lymphocytes % (auto) 16.6 % (10.0-50.0); Mean Corpuscular Hgb Conc. 32.5 g/dL (32.0-36.0); Mean Corpuscular Volume 90.8 fL (80.0-100.0); Monocytes # (auto) 1.4 10 ^3/uL (0-1.3); Monocytes % (auto) 9.3 % (0.0-12.0); Neutrophils # (auto) 11.4 10 ^3/uL (1.6-8.6); Neutrophils % (auto) 73.6 % (37.0-80.0); Red Cell Distribution Width 19.2 % (11.8-14.3); White Blood Cell 15.4 10^3/uL (4.4-10.8)
[2022-09-07 04:25] LABS: Albumin 2.8 g/dL (3.4-5.0); BUN/Creatinine Ratio 24.4; Calcium 9.4 mg/dL (8.5-10.1); Potassium 3.5 mmol/L (3.5-5.1)
[2022-09-07 04:28] LABS: Bilirubin, Total 1.5 mg/dL (0.2-1.0); Total Protein 6.3 g/dL (6.4-8.2)
[2022-09-07] MEDS ORDERED: HYDROmorphone HCL 2 MG/ML VL/or syr IV ONE (04:45)
[2022-09-07 05:38] LABS: Urine Blood 1+ /uL (Negative); Urine Specific Gravity 1.016 (1.001-1.035)
[2022-09-07] MEDS: ASCORBIC ACID 500 MG TAB PO SCH ×3 (05:39→21:44)
[2022-09-07] MEDS: CLINDAMYCIN 600MG IV 50 ML IV SCH ×4 (05:39→21:43)
[2022-09-07] MEDS: cefTRIAXone 1GM/50ML D5W 50 ML IV SCH (09:14)
[2022-09-07] MEDS: MULTIPLE VITAMIN TAB PO SCH (09:51)
[2022-09-07] MEDS: ZINC SULFATE 220mg CAP or TAB PO SCH (09:51)
[2022-09-07 11:44] VITALS: BP 110/80
[2022-09-07] MEDS ORDERED: ceFAZolin 1GM VL ONE ×2 (12:32→13:02)
[2022-09-07] MEDS ORDERED: DexAMETHasone SOD PHOS 10MG/1ML VIAL INJ ONE (13:03)
[2022-09-07] MEDS ORDERED: SODIUM CHLORIDE LOCK 10 ML ONE (13:03)
[2022-09-07] MEDS ORDERED: PROPOFOL 10 MG/ML 20 ML IV ONE (13:03)
[2022-09-07] MEDS ORDERED: fentaNYL CITRATE 100 MCG/2 ML VL ONE (13:03)
[2022-09-07] MEDS ORDERED: MIDAZOLAM HCL 2MG/2ML 2ml VIAL (1mg/ml) ONE (13:03)
[2022-09-07] MEDS ORDERED: KETAMINE HCL 10 ML ONE (13:03)
[2022-09-07] MEDS ORDERED: ceFAZolin 1GM/50ML 50 ML IV ONE (13:22)
[2022-09-07] MEDS ORDERED: METOCLOPRAMIDE HCL 5MG/ml INJ 2ml VIAL IV PRN (14:45)
[2022-09-07] MEDS ORDERED: MORPHINE SULFATE 4 MG/ML SYR/VIAL IV PRN (14:45)
[2022-09-07] MEDS ORDERED: HYDROmorphone HCL 2 MG/ML VL/or syr IV PRN ×2 (14:45)
[2022-09-07] MEDS ORDERED: LABETALOL HCL 5 MG/ML 4ML SYRINGE IV ONE (14:57)
[2022-09-07 17:00] VITALS: BP 101/65
[2022-09-07 22:00] VITALS: BP 105/63
[2022-09-08] MEDS: SODIUM CHLORIDE 0.9% 1,000 ML IV SCH ×2 (01:51→17:10)
[2022-09-08 05:00] VITALS: BP 104/72
[2022-09-08] MEDS: CLINDAMYCIN 600MG IV 50 ML IV SCH ×3 (05:40→22:21)
[2022-09-08] MEDS: HYDROcodone-ACET 5/325MG TAB PO PRN ×2 (05:41→06:56)
[2022-09-08 08:58] VITALS: BP 102/66
[2022-09-08] MEDS: ZINC SULFATE 220mg CAP or TAB PO SCH (10:00)
[2022-09-08] MEDS: ASCORBIC ACID 500 MG TAB PO SCH ×2 (10:00→22:23)
[2022-09-08] MEDS: ACETAMINOPHEN 325 MG TAB PO PRN ×2 (10:01→22:23)
[2022-09-08] MEDS: cefTRIAXone 1GM/50ML D5W 50 ML IV SCH (10:01)
[2022-09-08] MEDS: MULTIPLE VITAMIN TAB PO SCH (10:01)
[2022-09-08] MEDS: HYDROcodone-ACET 10/325MG TAB PO PRN ×2 (12:02→18:13)
[2022-09-08] MEDS ORDERED: ASPirin 81 mg TAB PO ONE (12:30)
[2022-09-08] MEDS ORDERED: TEMAZEPAM 15 MG CAP PO PRN (12:30)
[2022-09-08 13:00] VITALS: BP 94/59
[2022-09-08 17:00] VITALS: BP 83/47
[2022-09-08] MEDS: ALBUTEROL SULF 2.5 MG/0.5ML(0.5%) NEB SOLN NEB SCH (19:54)
[2022-09-08 22:00] VITALS: BP 93/64
[2022-09-08] MEDS: CARVEDILOL 3.125 MG TAB PO SCH (22:00)
[2022-09-08] MEDS ORDERED: SACUBITRIL-VALSARTAN 24mg/26mg TAB PO SCH (22:00)
[2022-09-08] MEDS: TICAGRELOR 90 MG TAB PO SCH (22:00)
[2022-09-08] MEDS: ATORVASTATIN 20 MG TAB PO SCH (22:22)
[2022-09-08] MEDS: SACUBITRIL-VALSARTAN 24mg/26mg TAB PO SCH (22:22)
[2022-09-09] VITALS (7 sets, daily range): BP systolic 93–121; BP diastolic 63–86
[2022-09-09] MEDS: SODIUM CHLORIDE 0.9% 1,000 ML IV SCH ×3 (06:00→21:45)
[2022-09-09] MEDS: CLINDAMYCIN 600MG IV 50 ML IV SCH ×3 (06:03→22:11)
[2022-09-09] MEDS: ALBUTEROL SULF 2.5 MG/0.5ML(0.5%) NEB SOLN NEB SCH ×4 (06:30→18:02)
[2022-09-09 07:25] LABS: Basophils # (auto) 0 10 ^3/uL (0-0.2); Basophils % (auto) 0.1 % (0.0-2.0); Eosinophils # (auto) 0 10 ^3/uL (0-0.8); Eosinophils % (auto) 0.2 % (0.0-7.0); Hemoglobin 14.9 g/dL (13.5-17.5); Lymphocytes % (auto) 12.2 % (10.0-50.0); Mean Corpuscular Hemoglobin 29.2 pg (28.0-32.0); Mean Corpuscular Hgb Conc. 31.6 g/dL (32.0-36.0); Mean Corpuscular Volume 92.3 fL (80.0-100.0); Monocytes # (auto) 1.7 10 ^3/uL (0-1.3); Monocytes % (auto) 10.8 % (0.0-12.0); Neutrophils # (auto) 12.3 10 ^3/uL (1.6-8.6); Neutrophils % (auto) 76.7 % (37.0-80.0); Red Cell Distribution Width 18.5 % (11.8-14.3); White Blood Cell 16.1 10^3/uL (4.4-10.8)
[2022-09-09 07:36] LABS: INR 1.03 (0.9-1.15); Partial Thromboplastin Time 30.6 sec (24.6-33.4)
[2022-09-09] MEDS: HYDROcodone-ACET 10/325MG TAB PO PRN (07:47)
[2022-09-09 07:52] LABS: Potassium 3.9 mmol/L (3.5-5.1)
[2022-09-09 07:53] LABS: BUN/Creatinine Ratio 28.6; Calcium 8.6 mg/dL (8.5-10.1)
[2022-09-09] MEDS: cefTRIAXone 1GM/50ML D5W 50 ML IV SCH (09:17)
[2022-09-09] MEDS ORDERED: HYDROmorphone HCL 2 MG/ML VL/or syr IV PRN (10:30)
[2022-09-09] MEDS: ASCORBIC ACID 500 MG TAB PO SCH ×2 (11:30→22:12)
[2022-09-09] MEDS: ZINC SULFATE 220mg CAP or TAB PO SCH (11:30)
[2022-09-09] MEDS: ASPirin 81 mg TAB PO SCH (11:30)
[2022-09-09] MEDS: MULTIPLE VITAMIN TAB PO SCH (11:30)
[2022-09-09] MEDS: TICAGRELOR 90 MG TAB PO SCH ×2 (11:30→22:12)
[2022-09-09] MEDS: POTASSIUM CHL 20 Meq TABLET PO SCH (11:30)
[2022-09-09] MEDS: EMPAGLIFLOZIN 10 MG TAB PO SCH (11:30)
[2022-09-09] MEDS: CARVEDILOL 3.125 MG TAB PO SCH ×2 (11:31→22:16)
[2022-09-09] MEDS: FUROSEMIDE 20 MG TAB PO SCH (11:31)
[2022-09-09] MEDS: SACUBITRIL-VALSARTAN 24mg/26mg TAB PO SCH ×2 (11:31→22:12)
[2022-09-09] MEDS ORDERED: IODIXANOL 320MG/ML 100ML BTL IV ONE (12:30)
[2022-09-09] MEDS ORDERED: MIDAZOLAM HCL 2MG/2ML 2ml VIAL (1mg/ml) ONE ×2 (12:37→14:30)
[2022-09-09] MEDS ORDERED: ANGIOMAX 250 MG VIAL IV ONE (12:37)
[2022-09-09] MEDS ORDERED: SODIUM CHL 0.9% 50 ML ONE (12:37)
[2022-09-09] MEDS ORDERED: fentaNYL CITRATE 100 MCG/2 ML VL ONE (12:37)
[2022-09-09] MEDS ORDERED: LIDOCAINE 2%HCL (LOCAL ANESTH.) INJ 20ML MDV ONE (12:46)
[2022-09-09] MEDS ORDERED: IOHEXOL 350 MG/ML 100ML IJ ONE ×3 (13:06→15:11)
[2022-09-09] MEDS ORDERED: HYDROmorphone HCL 2 MG/ML VL/or syr ONE (13:26)
[2022-09-09] MEDS: ATORVASTATIN 20 MG TAB PO SCH (22:12)
[2022-09-10] MEDS: HYDROcodone-ACET 10/325MG TAB PO PRN ×2 (04:28→18:49)
[2022-09-10] MEDS: ALBUTEROL SULF 2.5 MG/0.5ML(0.5%) NEB SOLN NEB SCH ×4 (06:00→18:07)
[2022-09-10] MEDS: CLINDAMYCIN 600MG IV 50 ML IV SCH ×3 (06:17→22:48)
[2022-09-10] MEDS: ZINC SULFATE 220mg CAP or TAB PO SCH (08:40)
[2022-09-10] MEDS: cefTRIAXone 1GM/50ML D5W 50 ML IV SCH (08:40)
[2022-09-10] MEDS: FUROSEMIDE 20 MG TAB PO SCH (08:41)
[2022-09-10] MEDS: POTASSIUM CHL 20 Meq TABLET PO SCH (08:41)
[2022-09-10] MEDS: ASCORBIC ACID 500 MG TAB PO SCH ×2 (08:41→22:49)
[2022-09-10] MEDS: MULTIPLE VITAMIN TAB PO SCH (08:42)
[2022-09-10] MEDS: SACUBITRIL-VALSARTAN 24mg/26mg TAB PO SCH ×2 (08:42→22:49)
[2022-09-10] MEDS: EMPAGLIFLOZIN 10 MG TAB PO SCH (08:42)
[2022-09-10] MEDS: ASPirin 81 mg TAB PO SCH (08:42)
[2022-09-10] MEDS: CARVEDILOL 3.125 MG TAB PO SCH ×2 (08:43→22:49)
[2022-09-10] MEDS: RIVAROXABAN 20 MG TAB PO SCH (08:43)
[2022-09-10] MEDS: HYDROmorphone HCL 2 MG/ML VL/or syr IV PRN ×2 (08:44→20:19)
[2022-09-10 09:00] VITALS: BP 121/79
[2022-09-10 13:00] VITALS: BP 108/76
[2022-09-10] MEDS ORDERED: NICOTINE 14 MG/24HR TOPICAL PATCH TD ONE (13:30)
[2022-09-10] MEDS: TICAGRELOR 90 MG TAB PO SCH ×2 (15:49→22:48)
[2022-09-10 17:00] VITALS: BP 95/72
[2022-09-10 22:00] VITALS: BP 135/85
[2022-09-10] MEDS: ATORVASTATIN 20 MG TAB PO SCH (22:49)
[2022-09-11] MEDS: ALBUTEROL SULF 2.5 MG/0.5ML(0.5%) NEB SOLN NEB SCH ×4 (00:01→19:18)
[2022-09-11] MEDS: HYDROmorphone HCL 2 MG/ML VL/or syr IV PRN ×3 (02:01→20:19)
[2022-09-11] MEDS: SODIUM CHLORIDE 0.9% 1,000 ML IV SCH ×3 (03:00→21:54)
[2022-09-11 05:00] VITALS: BP 131/92
[2022-09-11] MEDS: CLINDAMYCIN 600MG IV 50 ML IV SCH (06:06)
[2022-09-11 09:00] VITALS: BP 112/79
[2022-09-11] MEDS: cefTRIAXone 1GM/50ML D5W 50 ML IV SCH (10:44)
[2022-09-11] MEDS: ASPirin 81 mg TAB PO SCH (10:44)
[2022-09-11] MEDS: NICOTINE 14 MG/24HR TOPICAL PATCH TD SCH (10:44)
[2022-09-11] MEDS: ASCORBIC ACID 500 MG TAB PO SCH ×2 (10:45→21:48)
[2022-09-11] MEDS: TICAGRELOR 90 MG TAB PO SCH ×2 (10:45→21:47)
[2022-09-11] MEDS: RIVAROXABAN 20 MG TAB PO SCH (10:45)
[2022-09-11] MEDS: SACUBITRIL-VALSARTAN 24mg/26mg TAB PO SCH ×2 (10:45→21:47)
[2022-09-11] MEDS: POTASSIUM CHL 20 Meq TABLET PO SCH (10:46)
[2022-09-11] MEDS: MULTIPLE VITAMIN TAB PO SCH (10:46)
[2022-09-11] MEDS: ZINC SULFATE 220mg CAP or TAB PO SCH (10:46)
[2022-09-11] MEDS: CARVEDILOL 3.125 MG TAB PO SCH ×2 (10:47→21:48)
[2022-09-11] MEDS: FUROSEMIDE 20 MG TAB PO SCH (10:47)
[2022-09-11] MEDS: EMPAGLIFLOZIN 10 MG TAB PO SCH (10:48)
[2022-09-11] MEDS ORDERED: levoFLOXacin 500MG 100 ML IV ONE (11:15)
[2022-09-11] MEDS: HYDROcodone-ACET 10/325MG TAB PO PRN ×2 (12:53→21:51)
[2022-09-11 13:00] VITALS: BP 109/76
[2022-09-11 17:00] VITALS: BP 114/79
[2022-09-11] MEDS: ATORVASTATIN 20 MG TAB PO SCH (21:47)
[2022-09-11 21:50] VITALS: BP 108/81
[2022-09-12] MEDS: ALBUTEROL SULF 2.5 MG/0.5ML(0.5%) NEB SOLN NEB SCH ×4 (00:43→18:05)
[2022-09-12] MEDS: HYDROmorphone HCL 2 MG/ML VL/or syr IV PRN ×3 (00:44→13:11)
[2022-09-12] MEDS: HYDROcodone-ACET 10/325MG TAB PO PRN ×2 (04:12→15:46)
[2022-09-12 04:50] VITALS: BP 115/83
[2022-09-12 08:30] VITALS: BP 107/81
[2022-09-12] MEDS: ASCORBIC ACID 500 MG TAB PO SCH (09:05)
[2022-09-12] MEDS: NICOTINE 14 MG/24HR TOPICAL PATCH TD SCH (09:05)
[2022-09-12] MEDS: ASPirin 81 mg TAB PO SCH (09:06)
[2022-09-12] MEDS: MULTIPLE VITAMIN TAB PO SCH (09:06)
[2022-09-12] MEDS: ZINC SULFATE 220mg CAP or TAB PO SCH (09:06)
[2022-09-12] MEDS: RIVAROXABAN 20 MG TAB PO SCH (09:06)
[2022-09-12] MEDS: CARVEDILOL 3.125 MG TAB PO SCH (09:07)
[2022-09-12] MEDS: TICAGRELOR 90 MG TAB PO SCH (09:07)
[2022-09-12] MEDS: POTASSIUM CHL 20 Meq TABLET PO SCH (09:07)
[2022-09-12] MEDS: EMPAGLIFLOZIN 10 MG TAB PO SCH (09:07)
[2022-09-12] MEDS: FUROSEMIDE 20 MG TAB PO SCH (09:07)
[2022-09-12] MEDS: SACUBITRIL-VALSARTAN 24mg/26mg TAB PO SCH (09:08)
[2022-09-12] MEDS ORDERED: levoFLOXacin 500MG 100 ML IV SCH (10:00)
[2022-09-12 10:41] LABS: Basophils # (auto) 0 10 ^3/uL (0-0.2); Basophils % (auto) 0.4 % (0.0-2.0); Eosinophils # (auto) 0.1 10 ^3/uL (0-0.8); Eosinophils % (auto) 0.6 % (0.0-7.0); Hematocrit 45.5 % (41.0-53.0); Lymphocytes # (auto) 1.6 10 ^3/uL (0.4-5.4); Lymphocytes % (auto) 16.4 % (10.0-50.0); Mean Corpuscular Hemoglobin 30.2 pg (28.0-32.0); Mean Corpuscular Hgb Conc. 32.9 g/dL (32.0-36.0); Mean Corpuscular Volume 91.7 fL (80.0-100.0); Monocytes # (auto) 0.8 10 ^3/uL (0-1.3); Monocytes % (auto) 7.6 % (0.0-12.0); Neutrophils # (auto) 7.5 10 ^3/uL (1.6-8.6); Red Blood Cells 4.96 10^6/uL (4.5-5.90); Red Cell Distribution Width 18.3 % (11.8-14.3)
[2022-09-12 10:43] LABS: INR 1.23 (0.9-1.15); Partial Thromboplastin Time 35.6 sec (24.6-33.4)
[2022-09-12 12:30] VITALS: BP 102/73
[2022-09-12] MEDS ORDERED: LIDOCAINE 1% (LOCAL ANESTH.) PF 5ml SDV ID ONE (12:30)
[2022-09-12 16:59] VITALS: BP 96/73
[2022-09-12] MEDS ORDERED: SODIUM CHLOR 0.9% PF (SALINE LOCK) 10ML VIAL/SYR IV SCH (22:00)
== END 2022-09-12 18:30 | DRG 853 ==
LOC: EDBD 14:10 → ER 14:10 → OVERFLOW 21:09 → EAST 09-07 11:47
PROVIDERS: ADMIT Nurse Practitioner Family; ATTEND Family Medicine
PROC: 0JBP0ZZ Excision of Left Lower Leg Subcutaneous Tissue and Fascia, Open Approach (ICD-10-PCS; 2022-09-07)
PROC: 0J9Q0ZZ Drainage of Right Foot Subcutaneous Tissue and Fascia, Open Approach (ICD-10-PCS; principal; 2022-09-07 13:38)
PROC: 047L34Z Dilation of Left Femoral Artery with Drug-eluting Intraluminal Device, Percutaneous Approach (ICD-10-PCS; 2022-09-09)
PROC: 047N34Z Dilation of Left Popliteal Artery with Drug-eluting Intraluminal Device, Percutaneous Approach (ICD-10-PCS; 2022-09-09)
PROC: 047U34Z Dilation of Left Peroneal Artery with Drug-eluting Intraluminal Device, Percutaneous Approach (ICD-10-PCS; 2022-09-09)
PROC: 02HV33Z Insertion of Infusion Device into Superior Vena Cava, Percutaneous Approach (ICD-10-PCS; 2022-09-12)
PROC: B548ZZA Ultrasonography of Superior Vena Cava, Guidance (ICD-10-PCS; 2022-09-12)
DX: A41.9 Sepsis, unspecified organism (principal); I50.23 Acute on chronic systolic (congestive) heart failure; L03.115 Cellulitis of right lower limb; L97.919 Non-pressure chronic ulcer of unspecified part of right lower leg with unspecified severity; L97.929 Non-pressure chronic ulcer of unspecified part of left lower leg with unspecified severity; J44.1 Chronic obstructive pulmonary disease with (acute) exacerbation; L03.116 Cellulitis of left lower limb; E44.0 Moderate protein-calorie malnutrition; L02.611 Cutaneous abscess of right foot; Z20.822 Contact with and (suspected) exposure to COVID-19; E87.6 Hypokalemia; E11.51 Type 2 diabetes mellitus with diabetic peripheral angiopathy without gangrene; E78.5 Hyperlipidemia, unspecified; I25.10 Atherosclerotic heart disease of native coronary artery without angina pectoris; B95.61 Methicillin susceptible Staphylococcus aureus infection as the cause of diseases classified elsewhere; F17.200 Nicotine dependence, unspecified, uncomplicated; I25.5 Ischemic cardiomyopathy; L97.519 Non-pressure chronic ulcer of other part of right foot with unspecified severity; L97.529 Non-pressure chronic ulcer of other part of left foot with unspecified severity; E11.621 Type 2 diabetes mellitus with foot ulcer; I11.0 Hypertensive heart disease with heart failure; Z95.5 Presence of coronary angioplasty implant and graft
CPT/HCPCS: 36415; 36569; 71045; 73700; 80048; 80053; 81003; 83605; 83735; 83880; 85025; 85379; 85610; 85652; 85730; 86850; 86900; 86901; 87040; 87070; 87075; 87077; 87186; 87205; 87426; 93005; 93306; 93970; 94640; 96365; 96366; 96367; 96375; 99152; 99153; C1874; G0378; J0690; J0696; J1100; J1956; J2250; J2704; J3490; Q9967